=== PATIENT | female | born 1950 | race Caucasian/White ===

== ENCOUNTER 2019-01-14 07:57 | Emergency (ER) | payer MEDICARE ==
--- OUTSIDE RECORDS SUMMARY | 2019-01-14 08:06 | XMS REPORT | Summary of Care ---
:1950 Author Organization [facility] Address [address] [place] [address] Care Team Providers Name Role Phone Kelly Mehta MD Primary Care Provider Charles Narvaez OD Primary Estate Planning Paralegal/Planning And Analysis Manager Reason for Visit Reason Comments Check Up Encounter Details Date Type Department Care Team Description 12/30/2018 Office Visit Nandini Mehta, ELINA on CPAP (Primary Dx); Practice Kelly Miller MD Atrial fibrillation, unspecified type ([facility]); [address] Type 2 diabetes mellitus with stage 3 chronic kidney disease, with long-term current use of insulin ([facility]); [place] [address] [place] [address] Chronic obstructive pulmonary disease, unspecified COPD type ([facility]); [phone] Mixed hyperlipidemia; Hypothyroidism, unspecified type; Diabetes mellitus without complication ([facility]); Benign hypertension; Mixed stress and urge urinary incontinence; Recurrent major depressive disorder, in partial remission ([facility]); Memory disorder; Acute bronchitis, unspecified organism Allergies Active Allergy Reactions Severity Noted Date Comments Environmental Respiratory Reaction 08/15/2018 Fumes, chemicals, seasonal allergies documented as of this encounter (statuses as of 12/30/2018) Medications Medication Sig Dispensed Refills Start End Date Status Date Insulin Detemir Inject 60 Units 5 Device 11 Active (LEVEMIR FLEXTOUCH) beneath the 9 100 UNIT/ML skin DAILY. Subcutaneous Replaces Lantus Solution Pen-injectorIndicat ions: Type 2 diabetes mellitus with stage 3 chronic kidney disease, with long-term current use of insulin ([facility]) Insulin Pen Needle 1 Units by Does 50 Each 6 Active (PEN NEEDLES) 31G X not apply route 9 5 MM Does not apply DAILY. MiscIndications: Diabetes mellitus without complication (HCC) levothyroxine Take 1 Tab by 90 Tab 1 Active (SYNTHROID) 75 MCG mouth BEFORE 9 Oral BREAKFAST. TabIndications: Hypothyroidism, unspecified type losartan (COZAAR) Take 0.5 Tabs 45 Tab 1 Active 25 MG Oral by mouth DAILY. 9 TabIndications: Benign hypertension Glucose Blood (ONE 1 Strip by In 200 Strip 11 Active TOUCH ULTRA TEST Vitro route 9 STRIPS) In Vitro TWICE DAILY. StripIndications: Diabetes mellitus without complication (HCC) oxybutynin Take 1 Tab by 90 Tab 2 Active (DITROPAN XL) 5 MG mouth DAILY. 9 Oral TABLET SR 24 HRIndications: Mixed stress and urge urinary incontinence sertraline (ZOLOFT) Take 1 Tab by 90 Tab 2 Active 100 MG Oral mouth DAILY. 9 TabIndications: Plus 50 mg for Recurrent major total of 150 mg depressive daily disorder, in partial remission (HCC) sertraline (ZOLOFT) Take 1 Tab by 90 Tab 3 Active 50 MG Oral mouth DAILY. In 9 TabIndications: addition to 100 Recurrent major mg tab for depressive total of 150 mg disorder, in daily partial remission (HCC) simvastatin (ZOCOR) Take 1 Tab by 30 Tab 5 Active 40 MG Oral mouth DAILY. 9 TabIndications: Mixed hyperlipidemia glimepiride Take 1 Tab by 180 Tab 1 Active (AMARYL) 4 MG Oral mouth TWICE 9 TabIndications: DAILY. Type 2 diabetes mellitus with stage 3 chronic kidney disease, with long-term current use of insulin ([facility]) donepezil (ARICEPT) Take 1 Tab by 90 Tab 3 Active 10 MG Oral mouth DAILY. 9 TabIndications: Memory disorder albuterol HFA Take 2 Puffs by 1 Inhaler 1 Active (VENTOLIN) 108 (90 inhalation 9 Base) MCG/ACT EVERY FOUR Inhalation Aero HOURS NEEDED SolnIndications: (wheezing). Acute bronchitis, unspecified organism Fluticasone-Umeclid Take 1 INHL by 1 Each 5 Active in-Vilant (TRELEGY inhalation 9 ELLIPTA) DAILY. 100-62.5-25 MCG/INH Inhalation AEROSOL POWDER, BREATH ACTIVATEDIndication s: Chronic obstructive pulmonary disease, unspecified COPD type ([facility]) Insulin Pen Needle 1 Units by Does 50 Each 6 12/31/19 Discontinued (PEN NEEDLES) 31G X not apply route 10 01 (Reorder) 5 MM Does not apply DAILY. MiscIndications: Diabetes mellitus without complication ([facility]) albuterol HFA Take 2 Puffs by 1 Inhaler 1 12/31/19 Discontinued (VENTOLIN) 108 (90 inhalation 8 (Reorder) Base) MCG/ACT EVERY FOUR Inhalation Aero HOURS NEEDED SolnIndications: (wheezing). Acute bronchitis, unspecified organism sertraline (ZOLOFT) Take 1 Tab by 90 Tab 3 12/31/19 Discontinued 50 MG Oral mouth DAILY. In 12 01 (Reorder) TabIndications: addition to 100 Recurrent major mg tab for depressive total of 150 mg disorder, in daily partial remission ([facility]) Fluticasone-Umeclid Take 1 INHL by 1 Each 5 12/31/19 Discontinued in-Vilant (TRELEGY inhalation 01 01 (Reorder) ELLIPTA) DAILY. 100-62.5-25 MCG/INH Inhalation AEROSOL POWDER, BREATH ACTIVATED Insulin Detemir Inject 50 Units 5 Device 11 12/31/19 Discontinued (LEVEMIR FLEXTOUCH) beneath the 01 01 (Reorder) 100 UNIT/ML skin DAILY. Subcutaneous Replaces Lantus Solution Pen-injectorIndicat ions: Type 2 diabetes mellitus with stage 3 chronic kidney disease, with long-term current use of insulin ([facility]) simvastatin (ZOCOR) Take 1 Tab by 30 Tab 5 12/31/19 Discontinued 40 MG Oral Tab mouth DAILY. 9 (Reorder) losartan (COZAAR) TAKE 1/2 TABLET 45 Tab 1 12/31/19 Discontinued 25 MG Oral BY MOUTH ONCE 01 01 (Reorder) TabIndications: DAILY Benign hypertension levothyroxine TAKE 1 TABLET 90 Tab 1 12/31/19 Discontinued (SYNTHROID) 75 MCG BY MOUTH ONCE 01 01 (Reorder) Oral Tab DAILY BEFORE BREAKFAST glimepiride TAKE 1 TABLET 180 Tab 1 12/31/19 Discontinued (AMARYL) 2 MG Oral BY MOUTH TWICE 01 01 (Dose Tab A Adjustment) DAY(DISCONTINUE GLIPIZIDE) donepezil (ARICEPT) TAKE 1 TABLET 90 Tab 3 12/31/19 Discontinued 10 MG Oral BY MOUTH AT 01 01 (Reorder) TabIndications: BEDTIME Memory disorder oxybutynin TAKE 1 TABLET 90 Tab 11 12/31/19 Discontinued (DITROPAN XL) 5 MG BY MOUTH DAILY 01 01 (Reorder) Oral TABLET SR 24 HRIndications: Mixed stress and urge urinary incontinence ONE TOUCH ULTRA TEST THREE 200 Strip 11 12/31/19 Discontinued TEST STRIPS In TIMES A DAY 01 01 (Reorder) Vitro DIRECTED StripIndications: Diabetes mellitus without complication (HCC) glimepiride TAKE 1 TABLET 180 Tab 1 12/31/19 Discontinued (AMARYL) 4 MG Oral BY MOUTH TWICE 01 01 (Reorder) TabIndications: DAILY Type 2 diabetes mellitus with stage 3 chronic kidney disease, with long-term current use of insulin (HCC) sertraline (ZOLOFT) TAKE 1 TABLET 90 Tab 2 12/31/19 Discontinued 100 MG Oral Tab BY MOUTH ONCE 01 01 (Reorder) DAILY ALONG WITH 50 MILLIGRAM TABLET FOR A TOTAL DAILY DOSE OF 150 MILLIGRAMS simvastatin (ZOCOR) TAKE 1 TABLET 90 Tab 1 12/31/19 Discontinued 40 MG Oral Tab BY MOUTH AT 01 01 (Duplicate BEDTIME Order) documented as of this encounter (statuses as of 12/30/2018) Active Problems Problem Noted Date ELINA (obstructive sleep apnea) 08/15/2018 Overview: [facility] [employer] AirSense 10 Autoset-CPAP at 6-15 cm. AHI 24.8 on 08/04/18 Nocturnal Polysomnogram Chronic obstructive pulmonary disease 07/01/2018 Type 2 diabetes mellitus with stage 3 chronic kidney disease, with 08/26/2017 long-term current use of insulin Hypothyroidism 08/16/2016 Depression 08/16/2016 Mixed hyperlipidemia 08/16/2016 BMI 36.0-36.9,adult 11/14/2015 documented as of this encounter (statuses as of 12/30/2018) Resolved Problems Problem Noted Date Resolved Date Diabetes mellitus without complication 11/14/2015 12/30/2018 documented as of this encounter (statuses as of 12/30/2018) Immunizations Name Administration Dates Next Due Influenza Vaccine High Dose 12/30/2018, 01/07/2018, 12/28/2016, 02/16/2016 PNEUMOCOCCAL POLYSACCHARIDE VACCINE 02/13/2015 Pneumococcal Conjugate(13 Valent) 02/16/2016 documented as of this encounter Social History Tobacco Use Types Packs/Day Years Used Date Former Smoker 2 50 Quit: 2013 Smokeless Tobacco: Never Used Alcohol Use Drinks/Week oz/Week Comments Yes occasional Social Isolation Answer Date Recorded In a typical week, how many times do you talk on the Three times a week 07/16 phone with family, friends, or neighbors? How often do you get together with friends or Three times a week 07/16/2018 relatives? How often do you attend druze or gnosticist Never 07/16/2018 services? Do you belong to any clubs or organizations such as No 07/16/2018 druze groups, unions, fraternal or athletic groups, or school groups? How often do you attend meetings of the clubs or Never 07/16/2018 organizations you belong to? Are you now , , , , Patient refused 07/16/2018 never or living with a partner? Physical Activity Answer Date Recorded On average, how many days per week do you engage in moderate to 0 days 2018 strenuous exercise (like walking fast, running, jogging, dancing, swimming, biking, or other activities that cause a light or heavy sweat)? On average, how many minutes do you engage in exercise at this 0 min 2018 level? Stress Answer Date Recorded Do you feel stress - tense, restless, nervous, or anxious, Not at all 2018 or unable to sleep at night because your mind is troubled all the time - these days? Financial Resource Strain Answer Date Recorded How hard is it for you to pay for the very basics like Not very hard 2018 food, housing, medical care, and heating? Intimate Partner Violence Answer Date Recorded Within the last year, have you been afraid of your partner or No 07/16/2018 ex-partner? Within the last year, have you been humiliated or emotionally No 07/16/2018 abused in other ways by your partner or ex-partner? Within the last year, have you been kicked, hit, slapped, or No 07/16/2018 otherwise physically hurt by your partner or ex-partner? Within the last year, have you been raped or forced to have any No 07/16/2018 kind of sexual activity by your partner or ex-partner? Food Insecurity Answer Date Recorded Within the past 12 months, you worried that your food would Never true 2018 run out before you got money to buy more. Within the past 12 months, the food you bought just didn't Never true 2018 last and you didn't have money to get more. Transportation Needs Answer Date Recorded In the past 12 months, has lack of transportation kept you from No 07/16/2018 medical appointments or from getting medications? In the past 12 months, has lack of transportation kept you from No 07/16/2018 meetings, work, or getting things needed for daily living? Sex Assigned at Date Recorded Not on file Job Start Date Occupation Industry Not on file Not on file Not on file Travel History Travel Start Travel End No recent travel history available. documented as of this encounter Last Filed Vital Signs Vital Sign Reading Time Taken Comments Blood Pressure 110/70 12/30/2018 11:58 AM EDT Pulse 78 12/30/2018 11:58 AM EDT Temperature - - Respiratory Rate - - Oxygen Saturation 95% 12/30/2018 11:58 AM EDT Inhaled Oxygen Concentration - - Weight 108.4 kg (239 lb) 12/30/2018 11:58 AM EDT Height 163.8 cm (5' 4.5") 12/30/2018 11:58 AM EDT Body Mass Index 40.39 12/30/2018 11:58 AM EDT documented in this encounter Patient Instructions Patient InstructionsKelly Mehta MD - 12/30/2018 11:40 AM EDTI sent all your refills [facility] for you. Increase your Levemir to 55 units daily and then if glucoses are still over 140 , go up to 60 units daily. We did your influenza shot today. I ordered a Holter monitor because your sleep study mentioned you had atrial fibrillation while sleeping. Use your cpap nightly. Please do fasting laboratory tests in 3 months and then follow up with me documented in this encounter Progress Notes Kelly Mehta MD - 12/30/2018 11:40 AM EDT Nursing Notes: Magalie Duong LPN 12/30/2018 12:04 PM Signed Chief Complaint Patient presents with Check Up SUBJECTIVE: Kayy Garcia is an 68-y.o. female who presents for evaluation and treatment of Type 2 diabetes mellitus. Her control is poor, she has worsened. She only gets 3 lantus pens a month, so skips nights. She is on [employer] now and was told Lantus is not covered. She complains Trujeo is three times the copay of Lantus She agrees to try Levemir again last visit instead. She now says metformin worked for her in the past, but her prior doctor stopped it due to warnings he read about it. She denies side effects to it. She is changing pharmacies, wants all medications sent to [facility] Dr Schuster dx her with COPD, started her on Trelegy ellipta: Working well. He noted atrial fibrillation on her sleep study at night, in July She agrees to a Holter Previous treatment modalities employed include diet, oral agents and insulin injections. Current treatment includes diet, oral agents and insulin injections. Her A1C is improving but Not at goal I referred her to cardiology this past winter for chest pressure. She only made it one minute on the Stress echocardiogram. He felt this was unlikely to be cardiac but ordered the stress echocardiogram. He recommended a higher intensity statin. I discussed this with her and she declined. She had a chronic cough but less.. Her chest CT showed a benign nodule, no masses. We stopped lisinopril and switched to losartan The ARB helped. Gets short of breath easily with exertion. Snores loudly Dr Schuster started a new inhaler and ordered a sleep study. This was done 07/2018 and showed moderate to severe ELINA. Auto cpap was ordered. Atrial fibrillation at night was also noted on the sleep study. Current monitoring regimen: home blood tests - once daily Home blood sugar records: up as far as 230, when watching her diet, 160-190 She stopped going to [facility] for counseling for her depression. She feels overall she isstable. However she hates closed in spaces, and her apartment is very small and closed in. She requested a note to move to [place] [address], newer apartments in her complex, needs a doctor's note last visit. She is still on the waiting list She saw Dr. Balbuena for memory problems and headaches in the past. He started her on Aricept. She feels better, and headaches are better. Last HgbA1c: Lab Results Component Value Date GLYCO 9.4 (H) 12/22/2018 GLYCO 10.2 (H) 09/16/2018 GLYCO 9.4 (H) 06/23/2018 Lab Results Component Value Date TSH 3.11 09/16/2018 Lab Results Component Value Date CHOL 216 (H) 03/25/2018 TRIG 218 (H) 03/25/2018 HDL 48 (L) 03/25/2018 LDL 124 (H) 03/25/2018 LDLHDLRATIO 2.6 03/25/2018 CHOLHDLRATIO 4.5 03/25/2018 Lab Results Component Value Date NA 138 09/16/2018 K 4.9 09/16/2018 CL 103 09/16/2018 CO2 27 09/16/2018 GLUCOSE 250 (H) 09/16/2018 BUN 31 (H) 09/16/2018 CREATININE 0.9 09/16/2018 CALCIUM 8.9 09/16/2018 TP 7.7 09/16/2018 ALBUMIN 4.3 09/16/2018 AST 21 09/16/2018 ALT 23 09/16/2018 ALK 98 09/16/2018 TBILI 0.4 09/16/2018 EGFR >60 09/16/2018 Last eye exam: 09/2018 Dr. Narvaez Last microalbumin: 06/23/18 Last microfilament foot exam: 06/2018 Immunizations: Immunization History Administered Date(s) Administered Influenza Vaccine High Dose 02/16/2016, 12/28/2016, 01/07/2018, 2018 PNEUMOCOCCAL POLYSACCHARIDE VACCINE 02/13/2015 Pneumococcal Conjugate(13 Valent) 02/16/2016 Diabetic complications: CKD Cardiovascular risk factors: lipids and diabetes mellitus CT CHEST LUNG SCREENING Narrative: Procedure(s): CT CHEST LUNG SCREENING Date of service: 10/03/2017 2:26 PM Provided clinical information: 67 years, Female, "Lung cancer annual screening, asymptomatic, smoker hx w/in last 15 yrs (min. 30 pack-yrs)" Procedure and materials: Low-dose CT examination of the chest (LDCT). Contrast: None. Comparison studies: Chest x-ray August 26, 2017 Observations: CT Thorax: Mediastinum and hodan: Normal Vasculature: Normal Lungs: Nodules: 2 mm nodule in the right lower lobe image 285 of series 9. Additional 2 mm nodule in the right lung, image 229 series 9. Evidence of granulomatous disease. Other significant parenchymal findings: None. Pleura: No pleural effusion. Enlarged fatty liver. Postcholecystectomy. Impression: IMPRESSION: Small nodules in the right lung. The fit within the category of benign appearance or behavior. Lung-RADS Assessment Category: 2. - Benign appearance or behavior Recommendation: Continue annual screening with low-dose chest CT in 12 months. Urgency: Routine. This is a routine medical imaging report. Signed by Brandie Perera on 10/06/2017 3:17 PM She opts to hole off on the repeat until after she sees Dr Schuster. Current Outpatient Medications: albuterol HFA (VENTOLIN) 108 (90 Base) MCG/ACT Inhalation Aero Soln, Take 2 Puffs by inhalation EVERY FOUR HOURS NEEDED (wheezing)., Disp: 1 Inhaler, Rfl: 1 donepezil (ARICEPT) 10 MG Oral Tab, Take 1 Tab by mouth DAILY., Disp: 90 Tab, Rfl: 3 Jxnxyjkrgvv-Mdxzffqtf-Yusfvd (TRELEGY ELLIPTA) 100-62.5-25 MCG/INH Inhalation AEROSOL POWDER, BREATH ACTIVATED, Take 1 INHL by inhalation DAILY., Disp: 1 Each, Rfl: 5 glimepiride (AMARYL) 4 MG Oral Tab, Take 1 Tab by mouth TWICE DAILY., Disp: 180 Tab, Rfl: 1 Glucose Blood (ONE TOUCH ULTRA TEST STRIPS) In Vitro Strip, 1 Strip by In Vitro route TWICE DAILY., Disp: 200 Strip, Rfl: 11 Insulin Detemir (LEVEMIR FLEXTOUCH) 100 UNIT/ML Subcutaneous Solution Pen-injector, Inject 60 Units beneath the skin DAILY. Replaces Lantus, Disp: 5 Device, Rfl: 11 Insulin Pen Needle (PEN NEEDLES) 31G X 5 MM Does not apply Misc, 1 Units by Does not apply route DAILY., Disp: 50 Each, Rfl: 6 levothyroxine (SYNTHROID) 75 MCG Oral Tab, Take 1 Tab by mouth BEFORE BREAKFAST., Disp: 90 Tab, Rfl: 1 losartan (COZAAR) 25 MG Oral Tab, Take 0.5 Tabs by mouth DAILY., Disp: 45 Tab, Rfl: 1 oxybutynin (DITROPAN XL) 5 MG Oral TABLET SR 24 HR, Take 1 Tab by mouth DAILY., Disp: 90 Tab, Rfl: 2 sertraline (ZOLOFT) 100 MG Oral Tab, Take 1 Tab by mouth DAILY. Plus 50 mg for total of 150 mg daily, Disp: 90 Tab, Rfl: 2 sertraline (ZOLOFT) 50 MG Oral Tab, Take 1 Tab by mouth DAILY. 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 Headache disorder MIgraines in the past Hx of cardiac cath 2007 negative, [facility] Hypothyroidism Nephrolithiasis TIA (transient ischemic attack) 2013 Type 2 diabetes mellitus with stage 3 chronic kidney disease, with long- term current use of insulin ([facility]) 08/26/2017 Past Surgical History: Procedure Laterality Date APPENDECTOMY SECTION NOS COLONOSCOPY 05/2015 had six polyps, 3 year follow up recommended. EXPLORATORY LAPAROTOMY adhesions MO REMOVAL GALLBLADDER MO TOTAL ABDOM HYSTERECTOMY still has ovaries; no cancer,but it was "pre-cancer" on pap Family History Problem Relation Age of Onset Heart Mother IA s/p CABG Diabetes Mother Cancer Mother renal cancer, bone cancer in back Aneurysm Mother brain Diabetes Father Heart Father IA Kidney Disease Father No Known Problems Daughter Heart Brother IA, Pacemaker Cancer Paternal Grandmother breast cancer Social History Tobacco Use Smoking status: Former Smoker Packs/day: 2.00 Years: 50.00 Pack years: 100.00 Last attempt to quit: 2014 Years since quittin.7 Smokeless tobacco: Never Used Substance Use Topics Alcohol use: Yes Comment: occasional Review Of Systems Skin: negative for rash Eyes: negative for vision changes Ears/Nose/Throat:has intermittent sinus congestion. Respiratory: positive for inermittent dry cough, shortness of breath , denies hemopytisis Cardiovascular: negative for chest pain pressure, no orthopnea Gastrointestinal: negative for abdominal pain, diarrhea, bowel changes. Neurologic: negative for dizziness, syncope; has memory issues, but aricept helps Psychiatric: controlled depression OBJECTIVE: BP 110/70 (BP Location: Right arm, Patient Position: Sitting) | Pulse 78 | Ht 5' 4.5" (1.638 m) |Wt 239 lb (108.4 kg) | SpO2 95% | ? No | BMI 40.39 kg/m General appearance: alert, no distress, oriented times 3 Skin: Skin color, texture, turgor normal. No rashes or lesions. Eyes: conjunctivae/corneas clear. Ears: negative findings: external ears normal to inspection and palpation Oropharynx: negative findings: lips normal without lesions Nose: No drainage Neck: Neck supple. No cervical or supraclavicular adenopathy. Thyroid symmetric , normal size. Carotids 4/4 without bruits. Lungs:. Clear with good aeration bilaterally, Chest symmetrical, no crackle or rales. Heart: Regular rate and rhythm. No murmurs, clicks or gallops. Abdomen: Abdomen soft, non-tender. BS normal. No masses, organomegaly or hernia. No bruits. Extremities: Extremities without deformities, edema, or skin discoloration. Station and gait normal. Peripheral pulses: dorsalis pedis=2/2, Neuro: Gait normal, strength grossly normal and symmetric. ASSESSMENT/PLAN: ICD-9-CM ICD-10-CM 1. ELINA on CPAP 327.23 G47.33 HOLTER MONITOR 24-48 HOURS V46.8 Z99.89 2. Atrial fibrillation, unspecified type ([facility]) 427.31 I48.91 HOLTER MONITOR 24- 48 HOURS 3. Type 2 diabetes mellitus with stage 3 chronic kidney disease, with long-term current use of insulin ([facility]) 250.40 E11.22 Insulin Detemir (LEVEMIR FLEXTOUCH) 100 UNIT/ML Subcutaneous Solution Pen-injector 585.3 N18.3 glimepiride (AMARYL) 4 MG Oral Tab V58.67 Z79.4 GLYCOHEMOGLOBIN A1C COMPREHENSIVE METABOLIC PANEL 4. Chronic obstructive pulmonary disease, unspecified COPD type ([facility]) 496 J44.9 Czcacxeqcoq-Cmyiarjjo-Vvtryg (TRELEGY ELLIPTA) 100-62.5-25 MCG/INH Inhalation AEROSOL POWDER, BREATH ACTIVATED 5. Mixed hyperlipidemia 272.2 E78.2 simvastatin (ZOCOR) 40 MG Oral Tab LIPID PROFILE 6. Hypothyroidism, unspecified type 244.9 E03.9 levothyroxine (SYNTHROID) 75 MCG Oral Tab THYROID STIMULATING HORMONE 7. Diabetes mellitus without complication ([facility]) 250.00 E11.9 Insulin Pen Needle (PEN NEEDLES) 31G X 5 MM Does not apply Misc Glucose Blood (ONE TOUCH ULTRA TEST STRIPS) In Vitro Strip 8. Benign hypertension 401.1 I10 losartan (COZAAR) 25 MG Oral Tab 9. Mixed stress and urge urinary incontinence 788.33 N39.46 oxybutynin ( DITROPAN XL) 5 MG Oral TABLET SR 24 HR 10. Recurrent major depressive disorder, in partial remission ([facility]) 296.35 F33.41 sertraline (ZOLOFT) 100 MG Oral Tab sertraline (ZOLOFT) 50 MG Oral Tab 11. Memory disorder 780.93 R41.3 donepezil (ARICEPT) 10 MG Oral Tab 12. Acute bronchitis, unspecified organism 466.0 J20.9 albuterol HFA (VENTOLIN) 108 (90 Base) MCG/ACT Inhalation Aero Soln Mixed hyperlipidemia I recommend a higher intensity statin. A relative was intolerant of Crestor so she declined last visit Type 2 diabetes mellitus with stage 3 chronic kidney disease, with long-term current use of insulin ([facility]) Diabetes is Not controlled, will increase levemir to 55-60 units daily, am is ok if this is easier to remember. continue glimepiride to 4 mg bid.. Work on diet and exercise. Hypothyroidism, unspecified type Continue current meds Recurrent major depressive disorder, in partial remission (HCC) Continue sertraline COPD Follow up with Dr Schuster as directed. She declines annual chest CT screen for now, will discuss with dr Schuster next visit. Influenza shot given today Rx: CONCHA? ARB Statin? Yes Metformin? No: GFR went down when on this per past history but today says there were no side effects. Patient Instructions I sent all your refills to [facility] for you. Increase your Levemir to 55 units daily and then if glucoses are still over 140 , go up to 60 units daily. We did your influenza shot today. I ordered a Holter monitor because your sleep study mentioned you had atrial fibrillation while sleeping. Use your cpap nightly. Please do fasting laboratory tests in 3 months and then follow up with me Author: Kelly Mehta MD 12/30/2018 12:24 documented in this encounter Plan of Treatment Date Type Specialty Care Team Description [facility] Kelly Mehta MD [address] [place] [address] 05/21/2019 Office Visit Pulmonary Eran Schuster MD [address] [place] [address] [phone] Name Type Priority Associated Diagnoses Order Schedule HOLTER MONITOR 24-48 HOURS EKG Routine ELINA on CPAP Expected: Atrial fibrillation, 12/30/2018, unspecified type (HCC) Expires: 02/03/2020 GLYCOHEMOGLOBIN A1C Lab Routine Type 2 diabetes mellitus Expected: with stage 3 chronic 03/31/2019 kidney disease, with (Approximate), long-term current use of Expires: 06/01/2019 insulin (HCC) COMPREHENSIVE METABOLIC Lab Routine Type 2 diabetes mellitus Expected: PANEL with stage 3 chronic 03/31/2019 kidney disease, with (Approximate), long-term current use of Expires: 06/01/2019 insulin ([facility]) LIPID PROFILE Lab Routine Mixed hyperlipidemia Expected: 03/31/2019 (Approximate), Expires: 06/01/2019 THYROID STIMULATING HORMONE Lab Routine Hypothyroidism, Expected: unspecified type 03/31/2019 (Approximate), Expires: 06/01/2019 Health Maintenance Due Date Last Done Comments MAMMOGRAM (SCREENING) 1989 ZOSTER IMMUNIZATION SERIES 1999 (1 of 2) OSTEOPOROSIS SCREENING 2014 LUNG CANCER SCREENING 10/03/2018 10/03/2017 INFLUENZA VACCINE (#1) 2018 01/07/2018, 12/28/2016, 02/16/2016 HEMOGLOBIN A1C 03/23/2019 12/22/2018, 09/16/2018, 06/23/2018, Additional history exists FOOT EXAM 07/02/2019 07/01/2018, 07/01/2018, 07/01/2018, Additional history exists DEPRESSION SCREENING 07/17/2019 07/16/2018 FALL RISK ASSESSMENT 07/17/2019 07/16/2018, 07/16/2018 MEDICARE ANNUAL WELLNESS 07/17/2019 07/16/2018 VISIT LIPID DISORDER SCREENING 12/31/2019 12/30/2018, 03/25/2018, 02/25/2017, Additional history exists Diabetic Eye Exam 09/16/2020 09/16/2018, 08/22/2017, 08/22/2017, Additional history exists COLONOSCOPY SCREENING 04/15/2024 04/15/2014 PNEUMOCOCCAL 65+YRS Completed 02/16/2016, 02/13/2015 HPV IMMUNIZATION SERIES Aged Out No longer eligible based on patient's age to complete this topic MENINGOCOCCAL VACCINE IMM Aged Out No longer eligible based on patient's age to complete this topic documented as of this encounter Goals Goal Patient Goal Associated Recent Patient-Stated? Author Type Problems Progress Blood Pressure Blood 110/70 No Janine, < 140/90 Pressure (12/30/2018 Kelly Miller, 11:58 AM EDT) Note: This is an individualized treatment (blood pressure) goal for Kayy Garcia: Displayed above (on the left) is your goal for blood pressure control. Your most recent blood pressure is also shown above, on the right. You should try to achieve blood pressures that are lower than your goal listed above (on the left). Depression screen (PHQ-9) total score < Depression No Kelly Mehta MD 5 Note: This is an individualized treatment (depression) goal for Kayy Garcia: Displayed above is your goal for a depression screening (PHQ-9) score that would indicate good control of your depression. Glycohemoglobin A1c < 7.0 Diabetes 9.4 (12/22/2018 9:38 No Kelly Mehta AM, MD Note: This is an individualized treatment (diabetes control, HgbA1C) goal for Kayy Garcia: Displayed above is your progress towards your HgbA1C goal. Your goal is shown above (on the left); your most recent HgbA1C is shown on the right. Note that lower numbers are better. Weight loss vs. 18 Lifestyle 0 (12/30/2018 11:58 AM No Kelly Mehta mo max (lbs) >= 10 SIMONE DAVIS Note: This is an individualized lifestyle goal for Kayy Garcia: Your body mass index (BMI) is more than 30. You should lose weight. A reasonable starting goal is to lose 10 pounds. Displayed above is how many pounds you have lost thus far towards your 10 pound weight loss goal. Keep a regular sleep schedule Lifestyle No Kelly Mehta MD Note: This is an individualized lifestyle goal for Kayy Garcia: Please maintain a regular sleep schedule. This may help with some symptoms of depression. Keep immunizations current Lifestyle No Kelly Mehta MD Note: This is an individualized lifestyle goal for Kayy Garcia: Please be sure to keep up-to-date on recommended immunizations. For example, this would include a yearly influenza vaccine. Immunization status can be seen by looking at the Health Maintenance sections of your e[facility], Plan of Care, and any After Visit Summaries. Take all prescribed medications as Self-management Kelly Ko MD directed Note: This is an individualized self-management goal for Kayy Garcia: Please take all prescribed medications as directed. 1. Do not skip doses. If you cannot afford your medications, talk with your doctor. 2. Use a pill reminder system such as a pill box if needed. Your pharmacist can help you with this. 3. Contact your Pharmacy 5 days before your medication runs out. If you cannot take your medications for any reasons, talk with your doctor. 4. Please bring all of your medication bottles and inhalers (or a list of all your medications/inhalers) with you to every visit. Potential barriers to meeting all of your care plan goals will continue to be addressed on an ongoing basis. documented as of this encounter Results Not on filedocumented in this encounter Visit Diagnoses Diagnosis ELINA on CPAP - Primary Obstructive sleep apnea (adult) (pediatric) Atrial fibrillation, unspecified type (HCC) Type 2 diabetes mellitus with stage 3 chronic kidney disease, with long-term current use of insulin (HCC) Chronic obstructive pulmonary disease, unspecified COPD type (HCC) Mixed hyperlipidemia Hypothyroidism, unspecified type Diabetes mellitus without complication (HCC) Type II or unspecified type diabetes mellitus without mention of complication, not stated as uncontrolled Benign hypertension Essential hypertension, benign Mixed stress and urge urinary incontinence Mixed incontinence urge and stress (male)(female) Recurrent major depressive disorder, in partial remission (HCC) Memory disorder Memory loss Acute bronchitis, unspecified organism documented in this encounter Insurance Payer Benefit Plan / Subscriber ID Effective Dates Phone Address Type Group AETNA MEDICARE AETNA MEDICARE xxxxxxxx 2018-Present [employer] ADVANTAGE ADVANTAGE (Home) [facility] [phone] [address] (Work) [place] [address] documented as of this encounter
[2019-01-14 08:19] VITALS: BP 146/70
--- NOTE | 2019-01-14 08:56 | UC ---
General HPI - HPI Summary HPI Summary: Patient presents to urgent care for evaluation of a fall that happened on Saturday and a store. Patient started on a hanging chair. Patient she follows her in the chair fell landing on top of her. Patient did not strike her head. No loss of consciousness. No blood out of her eyes ears nose or mouth. Patient states she landed on her buttocks. Patient has had some sacral pain. Patient has progressive upper neck and mid back pain. Patient also was some mild right wrist pain. Patient took Tylenol yesterday. Patient had taken any analgesics A. Patient has taken hot showers and holds. Patient without chest pain terms of breath or abdominal pain. Patient got extremely weakness or paresthesias. Patient's medications reviewed this visit. Patient has had a history of arthritis. - History of Current Complaint Chief Complaint: UCGeneralIllness Stated Complaint: SHOULDER/BACK SIDE INJURY Time Seen by Provider: 01/14/19 08:52 Hx Obtained From: Patient, Other: - Friends are present with patient Onset Severity: Moderate Current Severity: Moderate Pain Intensity: 7 - Allergy/Home Medications Allergies/Adverse Reactions: Allergies Allergy/AdvReac Type Severity Reaction Status Date / Time No Known Allergies Allergy Verified 08/21/13 19:16 Home Medications: Home Medications Donepezil TAB* [Aricept 5 MG TAB*] 5 mg PO DAILY 01/14/19 [History Confirmed 06/03] Insulin Detemir (NF) [Levemir (NF)] 60 units DAILY 01/14/19 [History Confirmed 01/14/19] Losartan TAB* [Cozaar TAB*] 12.5 mg PO DAILY 01/14/19 [History Confirmed ] Oxybutynin TAB* [Ditropan TAB*] 5 mg PO DAILY 01/14/19 [History Confirmed ] Sertraline* [Zoloft*] 150 mg PO DAILY 01/14/19 [History Confirmed 01/14/19] PMH/Surg Hx/FS Hx/Imm Hx Previously Healthy: Yes - arthritis - Surgical History Surgical History: Yes Surgery Procedure, Year, and Place: hysto, appy, exp. lap. krystal. - Family History Known Family History: Positive: Non-Contributory - Social History Occupation: Retired Lives: Alone Alcohol Use: None Substance Use Type: None Smoking Status (MU): Former Smoker Household Exposure Type: Cigarettes - Immunization History Most Recent Influenza Vaccination: Fall 2012 Most Recent Tetanus Shot: unsure Most Recent Pneumonia Vaccination: never Review of Systems All Other Systems Reviewed And Are Negative: Yes Constitutional: Positive: Negative Skin: Positive: Negative. Negative: Bruising, Other - no open wounds or abrasions ENT: Positive: Negative Musculoskeletal: Positive: Other: - Back pain neck pain and right wrist pain Neurological: Positive: Negative Psychological: Positive: Negative Is Patient Immunocompromised?: No Physical Exam - Summary Physical Exam Summary: Vital Signs Reviewed: Yes A+Ox3, no distress Eyes: Conjunctiva Clear, DARIN. EOM intact and full ENT: Hearing grossly normal TM x 2 clear, no hemotymp b/l, no septal hematoma b /l no blood oropharynx, no broken teeth, mmoist, uvula midline, no exudate, no erythema Neck: Positive: Supple Respiratory: Positive: No respiratory distress, No accessory muscle use + CTA throughout no w/r Cardiovascular: RRR nl s1, s2 no m/r CBT <2 sec abd soft + BS nt/nd no guarding, no distension Musculoskeletal Exam: Pt with full AROM c spine. mild tenderness right paraspinal muscles. No crepitus Full AROM ext x 4 against resistance with mild increased pain in back. Neurological: Positive: Alert, + sensation throughout Psychological: Positive: Normal Response To examiner Skin: Positive: no rash, no ecchymosis Triage Information Reviewed: Yes Vital Signs: Initial Vital Signs Temp 97.7 F 01/14/19 08:12 Pulse 72 01/14/19 08:12 Resp 18 01/14/19 08:12 BP 146/70 01/14/19 08:12 Pulse Ox 93 01/14/19 08:12 Diagnostics - Radiology No standard instances Radiology Interpretation Completed By: Radiologist - Patient Name: HE PILLAI Medical Record#: [id number] Ordering Physician: Bridget Vazquez MD Acct.#: [id number] : 1950 Age: 68 Sex: F Location: [facility] Exam Date: 01/14/19 0905 ADM Status: REG ER Order Information: SP CERVICAL 2-3 VWS Accession Number: [id number] CPT: 95338 HISTORY: fall COMPARISONS: T spine dated January 14, 2019 VIEWS: 4, Frontal, lateral, and open-mouth odontoid views of the cervical spine. A swimmer's view is included on the T-spine series. FINDINGS: The cervical spine is visualized from the skull base through C6. The C7-T1 alignment is not included within the [id number] the current examination.. The C7-T1 alignment isn't included within the psbkl-ry-elun of the thoracic spine series. ALIGNMENT: There is straightening with reversal of the normal cervical lordosis. VERTEBRAL BODIES: There is diffuse osteopenia. There is anterolateral marginal osteophyte formation at C5-C6. JOINTS: There is uncovertebral and facet osteoarthritis. INTERVERTEBRAL DISCS: There is diffuse loss of intervertebral disc height. SOFT TISSUE: The prevertebral soft tissues are normal. OTHER: The skull base is normal. The lung apices are clear. IMPRESSION: 1. DEGENERATIVE DISC DISEASE AND OSTEOARTHRITIS 2. OSTEOPENIA. 3. NO ACUTE OSSEOUS INJURY TO THE CERVICAL SPINE. <Electronically signed by Ghulam White MD in OV> 01/14/19949 Dictated By: Ghulam White MD Dictated Date/Time : 01/14/19945 Transcribed Date/Time: 01/14/19945 Copy to: CC:Kelly Mehta MD; Bridget Vazquez MD Imaging - [facility] Imaging - [place] [facility] [address] [place] [address] This report is only to be considered final once signed by the Provider(s) as displayed in the "<Electronically Signed by >" field (s). Absence of a signature indicates the report is in a draft status and still needs to be finalized. In the event this document was created by someone other than the signing Provider, the individual initiating the document will be listed in the "Entered by:" or "Dictated by:" kidd. 1 of 2 Patient Name: HE PILLAI Tal Medical Record#: [id number] Ordering Physician: Bridget Vazquez MD Acct.#: [id number] : 1950 Age: 68 Sex: F Location: [facility]RGENT [facility] Exam Date: 01/14/19904 ADM Status: REG ER Order Information : SACRUM/COCCYX 2+ VWS Accession Number: [id number] CPT: 84891 HISTORY : fall, pain . COMPARISONS: None relevant available at the time of dictation. VIEWS: 4, frontal and lateral views of the sacrum and coccyx. FINDINGS: BONE DENSITY: There is diffuse osteopenia. BONES: There is no displaced fracture. JOINTS: There is advanced facet osteoarthritis along the lower lumbar spine. There is osteoarthritis of the hips and SI joints. ALIGNMENT: There is no dislocation. SOFT TISSUES: There is atherosclerosis of the aorta. OTHER FINDINGS: None. IMPRESSION: 1. OSTEOPENIA. 2. OSTEOARTHRITIS. 3. NO ACUTE OSSEOUS INJURY OF THE SACRUM AND COCCYX. PLAIN RADIOGRAPHS ARE RELATIVELY INSENSITIVE TO NONDISPLACED FRACTURES OF THE SACRUM AND COCCYX. IF THERE IS PERSISTENT CLINICAL CONCERN FOR SACROCOCCYGEAL OSSEOUS PATHOLOGY, BONE SCANNING MAY BE MORE SENSITIVE ____ <Electronically signed by Ghulam White MD in OV> 01/14/19947 Dictated By: Ghulam White MD Dictated Date/Time: 01/14/19946 Transcribed Date/Time: 01/14/19946 Copy to: CC:Kelly Mehta MD; Bridget Vazquez MD Imaging - [facility] Imaging - [place] [facility] - [facility] [address] [place] [address] ph [phone]) ph ([phone]) ph ([phone]) This report is only to be considered final once signed by the Provider(s) as displayed in the "<Electronically Signed by >" field (s). Absence of a signature indicates the report is in a draft status and still needs to be finalized. In the event this document was created by someone other than the signing Provider, the individual initiating the document will be listed in the "Entered by:" or "Dictated by:" kidd. 1 of 2 Patient Name: HE PILLAI Medical Record#: [id number] Ordering Physician: Bridget Vazquez MD Acct.#: [id number] : 1950 Age: 68 Sex: F Location: [facility] Exam Date: 01/14/19904 ADM Status: REG ER Order Information: THORACIC SPINE 2 VWS Accession Number: [id number] CPT: 69216 HISTORY: fall, pain COMPARISONS: None relevant available at the time of dictation. VIEWS: 2, Frontal and lateral views of the thoracic spine. FINDINGS: ALIGNMENT: There is mild scoliotic curvature of the spine. VERTEBRAL BODIES: There is diffuse osteopenia. There is multilevel anterolateral marginal osteophyte formation. JOINTS: Unremarkable. INTERVERTEBRAL DISCS: There is diffuse loss of intervertebral disc height. SOFT TISSUE: Unremarkable OTHER: The visualized lungs are clear. IMPRESSION: OSTEOPENIA. DEGENERATIVE DISC DISEASE. MILD SCOLIOSIS. < Electronically signed by Ghulam White MD in OV> 01/14/19947 Dictated By: Ghulam White MD Dictated Date/Time: 01/14/19947 Transcribed Date/ Time: 01/14/19947 Copy to: CC:Kelly Mehta MD; Bridget Vazquez MD Imaging - [facility] Imaging - [facility] [address] [place] [address] ph ([phone]) ph ([phone]) ph ) This report is only to be considered final once signed by the Provider(s) as displayed in the "<Electronically Signed by >" field (s). Absence of a signature indicates the report is in a draft status and still needs to be finalized. In the event this document was created by someone other than the signing Provider, the individual initiating the document will be listed in the "Entered by:" or "Dictated by:" kidd. 1 of 1 Patient Name: HE PILLAI Medical Record#: [id number] Ordering Physician: Bridget Vazquez MD Acct.#: [id number] : 1950 Age: 68 Sex: F Location: [facility] Exam Date: 01/14/19904 ADM Status: REG ER Order Information: WRIST RIGHT 3+ VWS Accession Number: [id number] CPT: 60368 HISTORY: fall, pain . COMPARISONS: None relevant available at the time of dictation. VIEWS: 3, Frontal, lateral, and oblique views of the right wrist FINDINGS: BONE DENSITY: There is diffuse osteopenia. BONES: There is no displaced fracture. JOINTS: There is osteoarthritis of the first CMC joint. ALIGNMENT: There is no dislocation. SOFT TISSUES: Unremarkable. OTHER FINDINGS: None. IMPRESSION: 1. OSTEOPENIA 2. OSTEOARTHRITIS NO ACUTE OSSEOUS INJURY. IF SYMPTOMS PERSIST, RECOMMEND REPEAT IMAGING < Electronically signed by Ghulam White MD in OV> 01/14/19948 Dictated By: Ghulam White MD Dictated Date/Time: 01/14/19947 Transcribed Date/ Time: 01/14/19947 Copy to: CC:Kelly Mehta MD; Bridget Vazquez MD Imaging - [facility] Imaging - [place] [facility] Imaging - [facility] [address] [place] [address] ph ([phone]) ph ([phone]) ph ) This report is only to be considered final once signed by the Provider(s) as displayed in the "<Electronically Signed by >" field (s). Absence of a signature indicates the report is in a draft status and still needs to be finalized. In the event this document was created by someone other than the signing Provider, the individual initiating the document will be listed in the "Entered by:" or "Dictated by:" kidd. 1 of 1 Re-Evaluation - Re-Evaluation First Eval Comment: Reviewed images with patient. Recommended Motrin and Tylenol. Recommended heat and stretching. Recommended follow-up with PCP. Patient's is understanding and agreement with him. Return precautions discussed. Course/Dx - Course Course Of Treatment: Patient presents to urgent care for evaluation of injury she sustained when she had a fall on Saturday. Patient states she fell out of a chair at a store landing on her coccyx. Patient with pain in her coccyx her neck and her right wrist. Patient has not taken anything for analgesia tape. Patient did take one dose of analgesia yesterday. No paresthesias or weakness. On exam vital signs shows an elevated blood pressure. Patient with history of similar. Patient with tenderness paraspinal cervical thoracic area. Patient also some mild Desai spinal sacral prescription coccyx area. Patient with good range of motion. Distal CSM is intact. We'll check cement imaging will be given analgesics and reassess. Discussed with patient anticipation of increased pain for the first 36 hours following injury. Patient comfortable and agreement with plan we'll reassess following him at - Diagnoses Provider Diagnosis: Musculoskeletal pain, Cervical strain Discharge ED - Sign-Out/Discharge Documenting (check all that apply): Patient Departure All imaging exams completed and their final reports reviewed: Yes - Discharge Plan Condition: Stable Disposition: HOME Patient Education Materials: Cervical Strain (ED), Musculoskeletal Pain (ED) Referrals: Kelly Mehta MD [Primary Care Provider] - Additional Instructions: Okay to alternate ibuprofen (Advil, Motrin) and Tylenol (acetaminophen) every 3 hours for pain or fever. Take with food. Do NOT take for more than 4-5 days. - apply heat to the areas that are sore- once your muscles are warm, slow gentle stretching exercises - Stay well hydated - drink plenty of non-alcoholic non-caffinated beverages - contact your doctor to schedule a followup appointment early next week - If you have uncontrolled pain, develop weakness, vomiting, or any other concerns is it recommended you go to the emergency department for further evaluation and treatment - Billing Disposition and Condition Condition: STABLE Disposition: Home
[2019-01-14] MEDS ORDERED: Ibuprofen TAB* 600 MG PO ONE (09:06)
== END 2019-01-14 10:16 | disposition home or self-care (01) ==
LOC: UCEAST 07:57
DX: S16.1XXA Strain of muscle, fascia and tendon at neck level, initial encounter (principal); M53.3 Sacrococcygeal disorders, not elsewhere classified; M50.323 Other cervical disc degeneration at C6-C7 level; M47.892 Other spondylosis, cervical region; M85.89 Other specified disorders of bone density and structure, multiple sites; M47.898 Other spondylosis, sacral and sacrococcygeal region; M51.34 Other intervertebral disc degeneration, thoracic region; M41.84 Other forms of scoliosis, thoracic region; M19.031 Primary osteoarthritis, right wrist; W07.XXXA Fall from chair, initial encounter; Y92.512 Supermarket, store or market as the place of occurrence of the external cause; Z87.891 Personal history of nicotine dependence
CPT/HCPCS: 72040; 72070; 72220; 99211; A9270-GY; G0463

== ENCOUNTER 2022-08-27 05:15 | Inpatient (IN) ==
[2022-08-27] MEDS ORDERED: Heparin - STEMI 5,000 UNITS/ML 1 ml VIAL IV ONE ×2 (05:36→05:38)
[2022-08-27 05:42] LABS: ABS Basophils 0.1 10^3/uL (0.0-0.1); ABS Eosinophils 0.2 10^3/uL (0.0-0.5); ABS Lymphocytes 3.9 10^3/uL (1.0-4.8); ABS Monocytes 0.8 10^3/uL (0.0-0.9); ABS Neutrophils 8.6 10^3/uL (1.5-7.6); ABS Nucleated RBC 0.01 10^3/ul; Eosinophil % 1.4 %; Hematocrit 42.4 % (35-45); Hemoglobin 13.8 g/dL (11.5-14.3); Lymphocyte % 28.8 %; Mean Corpuscular Hemoglobin 28.3 pg (27-33); Mean Corpuscular Hgb Conc 32.5 g/dL (31-36); Mean Corpuscular Volume 86.9 fL (80-97); Mean Platelet Volume 7.3 fL (7.5-11.2); Nucleated Red Blood Cells % 0.1 /100 WBC (0.0-0.4); Platelet Count 301 10^3/uL (150-450); Red Blood Count 4.88 10^6/uL (3.63-4.92); Red Cell Distribution Width 14.6 % (12-17); White Blood Count 13.6 10^3/uL (3.8-11.8)
[2022-08-27 05:53] LABS: INR 0.94 (0.88-1.18)
[2022-08-27] MEDS ORDERED: Lactated Ringers 1000 ml BAG IV.FLUID IV ONE (05:53)
[2022-08-27] MEDS ORDERED: Iohexol 350 (CONTRAST) 200 ML MDV IV ONE ×2 (05:58→06:48)
[2022-08-27] MEDS ORDERED: fentaNYL 100 mcg/2 ml 50 MCG/ML VIAL ONE ×2 (05:58→06:55)
[2022-08-27] MEDS ORDERED: nitroGLYCERIN DRIP 25,000 MCG/250 ML BTL ONE (05:58)
[2022-08-27] MEDS ORDERED: Midazolam 5 mg/5 ml VIAL 1 mg/ml 5 ml VIAL (5 mg) ONE (05:58)
[2022-08-27] MEDS ORDERED: Heparin 1,000 UNIT/ML 10 ml (10,000 UNITS) CATHLAB/DIALYSIS ONE (05:58)
[2022-08-27] MEDS ORDERED: VERAPAMIL 2.5 MG/ML 2 ML VIAL ** 5 mg/2 ml ONE (05:58)
[2022-08-27] MEDS ORDERED: Heparin 2 UNITS/ML 1000 mls 2,000 ML IV ONE (05:58)
[2022-08-27] MEDS ORDERED: Lidocaine 1% MPF 5 ML VIAL ONE (05:58)
[2022-08-27] MEDS ORDERED: niCARdipine 0.1MG/ML IVPREMIX 20 MG/200 ML BAG IV ONE (06:02)
[2022-08-27 06:35] LABS: Potassium 4.2 mmol/L (3.5-5.0)
[2022-08-27 06:36] LABS: Albumin 3.9 g/dL (3.2-5.2); Albumin/Globulin Ratio 1.4 (1-3); Calcium 9.1 mg/dL (8.6-10.3); Creatinine, Serum 0.92 mg/dL (0.51-0.95); Globulin 2.8 g/dL (2-4); Total Bilirubin 0.4 mg/dL (0.2-1.0); Total Protein 6.7 g/dL (6.4-8.9); eGFR CKD-EPI 65.7 (>60)
[2022-08-27] MEDS ORDERED: Iohexol 350 (CONTRAST) 100 ML PAK IV ONE (06:49)
[2022-08-27] MEDS ORDERED: Ondansetron 4 mg VIAL 2 MG/ML 2 ml VIAL IV PRN (07:10)
[2022-08-27] MEDS ORDERED: Dextrose 50% Syringe 50 ml 25 GM/50 ML SYRINGE IV PUSH PRN (08:46)
[2022-08-27] MEDS ORDERED: Insulin GLARGINE 100 un/ml 10 ml VIAL SUBCUT ONE (10:27)
[2022-08-27 12:42] LABS: HDL Cholesterol 49.4 mg/dL
[2022-08-27] MEDS ORDERED: Enoxaparin 40 MG/0.4 ML SYR SUBCUT SCH (18:00)
[2022-08-27] MEDS ORDERED: Enoxaparin 30 MG/0.3 ML SYR SUBCUT SCH (18:00)
[2022-08-28 06:15] LABS: ABS Basophils 0.1 10^3/uL (0.0-0.1); ABS Eosinophils 0.2 10^3/uL (0.0-0.5); ABS Monocytes 0.7 10^3/uL (0.0-0.9); ABS Neutrophils 7.9 10^3/uL (1.5-7.6); ABS Nucleated RBC 0.02 10^3/ul; Eosinophil % 1.3 %; Hemoglobin 14.5 g/dL (11.5-14.3); Lymphocyte % 25.2 %; Mean Corpuscular Hemoglobin 28.5 pg (27-33); Mean Corpuscular Volume 86.3 fL (80-97); Mean Platelet Volume 7.1 fL (7.5-11.2); Nucleated Red Blood Cells % 0.1 /100 WBC (0.0-0.4); Platelet Count 309 10^3/uL (150-450); Red Cell Distribution Width 14.8 % (12-17); White Blood Count 11.8 10^3/uL (3.8-11.8)
[2022-08-28 06:41] LABS: ALT 23 U/L (7-52); Albumin 4.2 g/dL (3.2-5.2); Albumin/Globulin Ratio 1.4 (1-3); Alkaline Phosphatase 85 U/L (35-149); Blood Urea Nitrogen 17 mg/dL (6-24); CO2 Carbon Dioxide 22 mmol/L (22-32); Calcium 9.4 mg/dL (8.6-10.3); Chloride 105 mmol/L (101-111); Creatinine, Serum 0.78 mg/dL (0.51-0.95); Glucose 219 mg/dL (70-100); Magnesium 1.9 mg/dL (1.9-2.7); Sodium 136 mmol/L (135-145); Total Protein 7.2 g/dL (6.4-8.9); eGFR CKD-EPI 80.1 (>60)
[2022-08-28 06:47] LABS: Anion Gap 9 mmol/L (2-16)
[2022-08-28 07:10] LABS: Potassium, Whole Blood 4.1 mmol/L (3.4-4.5)
[2022-08-28] MEDS ORDERED: Insulin GLARGINE 100 un/ml 10 ml VIAL SUBCUT SCH (09:00)
[2022-08-28] MEDS: PTO:DAPAGLIFLOZIN 10 MG TAB (NF) PO SCH (09:03)
[2022-08-28] MEDS ORDERED: Metoprolol Tartrate 5 mg VIAL 5 ml VIAL (1 mg/ml) ONE (09:39)
[2022-08-28] MEDS ORDERED: Metoclopramide 5 MG/ML VIAL (10 mg) IV ONE (09:39)
[2022-08-28] MEDS ORDERED: Amiodarone 150 mg IVPREMIX 150 MG/100 ML BAG IV ONE ×2 (09:41)
[2022-08-28] MEDS ORDERED: Magnesium Sulfate 2 gm BAG 2 GM/50 ML BAG IVPB ONE (09:54)
[2022-08-28] MEDS ORDERED: Amiodarone 360 MG IVPREMIX 360 MG/200 ML BAG IV ONE (09:55)
[2022-08-28] MEDS: Amiodarone 360 MG IVPREMIX 360 MG/200 ML BAG IV SCH ×3 (09:56→16:18)
[2022-08-28] MEDS ORDERED: Metoprolol Tartrate 5 mg VIAL 5 ml VIAL (1 mg/ml) IV ONE (10:21)
[2022-08-28] MEDS ORDERED: Heparin 5000 UNITS/ML 1 mL VIAL IV SCH (11:00)
[2022-08-28] MEDS: Heparin DRIP 25,000 UNITS BAG 25,000 UNITS/500 ML BAG IV SCH (11:04)
[2022-08-28] MEDS ORDERED: Sulfur Hexaflouride MICROSPHR 25 MG VIAL ONE (12:25)
[2022-08-29 02:05] LABS: TSH Ultra Thyroid Stim Horm 2.99 mcIU/mL (0.34-5.60)
[2022-08-29 02:06] LABS: Free T3 2.1 pg/mL (2.5-3.9)
[2022-08-29 02:07] LABS: Free T4 0.78 ng/dL (0.61-1.12)
[2022-08-29] MEDS: Amiodarone 360 MG IVPREMIX 360 MG/200 ML BAG IV SCH (04:08)
[2022-08-29 06:10] LABS: ABS Eosinophils 0.2 10^3/uL (0.0-0.5); ABS Lymphocytes 3.1 10^3/uL (1.0-4.8); ABS Monocytes 0.7 10^3/uL (0.0-0.9); ABS Neutrophils 6.3 10^3/uL (1.5-7.6); ABS Nucleated RBC 0.01 10^3/ul; Hematocrit 43.1 % (35-45); Hemoglobin 14.3 g/dL (11.5-14.3); Lymphocyte % 29.9 %; Mean Corpuscular Hemoglobin 28.2 pg (27-33); Mean Corpuscular Volume 85.4 fL (80-97); Nucleated Red Blood Cells % 0.1 /100 WBC (0.0-0.4); Platelet Count 257 10^3/uL (150-450); Red Blood Count 5.05 10^6/uL (3.63-4.92); Red Cell Distribution Width 14.4 % (12-17); White Blood Count 10.4 10^3/uL (3.8-11.8)
[2022-08-29 07:07] LABS: Albumin 3.6 g/dL (3.2-5.2)
[2022-08-29 07:13] LABS: Albumin/Globulin Ratio 1.3 (1-3); Globulin 2.7 g/dL (2-4); Total Protein 6.3 g/dL (6.4-8.9)
[2022-08-29 07:15] LABS: ALT 17 U/L (7-52); Alkaline Phosphatase 81 U/L (35-149); Anion Gap 11 mmol/L (2-16); Blood Urea Nitrogen 20 mg/dL (6-24); CO2 Carbon Dioxide 19 mmol/L (22-32); Calcium 8.7 mg/dL (8.6-10.3); Chloride 104 mmol/L (101-111); Creatinine, Serum 0.92 mg/dL (0.51-0.95); Glucose 260 mg/dL (70-100); Sodium 134 mmol/L (135-145); eGFR CKD-EPI 65.7 (>60)
[2022-08-29 08:34] LABS: Magnesium 2.2 mg/dL (1.9-2.7); Potassium Redraw 3.8 mmol/L (3.5-5.0)
[2022-08-29] MEDS: PTO:DAPAGLIFLOZIN 10 MG TAB (NF) PO SCH (08:47)
[2022-08-29] MEDS: Heparin DRIP 25,000 UNITS BAG 25,000 UNITS/500 ML BAG IV SCH (08:56)
[2022-08-29] MEDS ORDERED: Insulin GLARGINE 100 un/ml 10 ml VIAL SUBCUT SCH (09:00)
[2022-08-29] MEDS ORDERED: Potassium Chlor 10 meq TAB PO ONE (11:00)
[2022-08-29] MEDS ORDERED: NS 0.9% 500 ml BAG 500 ML IV ONE (17:48)
[2022-08-30 04:51] LABS: ABS Basophils 0.1 10^3/uL (0.0-0.1); ABS Eosinophils 0.2 10^3/uL (0.0-0.5); ABS Lymphocytes 2.3 10^3/uL (1.0-4.8); ABS Monocytes 0.7 10^3/uL (0.0-0.9); ABS Neutrophils 4.8 10^3/uL (1.5-7.6); Eosinophil % 2.8 %; Hematocrit 39.3 % (35-45); Lymphocyte % 28.1 %; Mean Corpuscular Hemoglobin 28.5 pg (27-33); Mean Corpuscular Volume 86.5 fL (80-97); Mean Platelet Volume 7.3 fL (7.5-11.2); Platelet Count 246 10^3/uL (150-450); Red Blood Count 4.55 10^6/uL (3.63-4.92); Red Cell Distribution Width 14.7 % (12-17); White Blood Count 8.1 10^3/uL (3.8-11.8)
[2022-08-30 05:24] LABS: Blood Urea Nitrogen 24 mg/dL (6-24); CO2 Carbon Dioxide 21 mmol/L (22-32); Chloride 107 mmol/L (101-111); Creatinine, Serum 1.19 mg/dL (0.51-0.95); Glucose 212 mg/dL (70-100); Magnesium 2.1 mg/dL (1.9-2.7); Sodium 138 mmol/L (135-145); eGFR CKD-EPI 48.3 (>60)
[2022-08-30 05:26] LABS: Anion Gap 10 mmol/L (2-16)
[2022-08-30] MEDS: Insulin GLARGINE 100 un/ml 10 ml VIAL SUBCUT SCH (08:40)
[2022-08-31 04:32] LABS: ABS Basophils 0.1 10^3/uL (0.0-0.1); ABS Eosinophils 0.2 10^3/uL (0.0-0.5); ABS Lymphocytes 2.7 10^3/uL (1.0-4.8); ABS Monocytes 0.6 10^3/uL (0.0-0.9); ABS Neutrophils 3.8 10^3/uL (1.5-7.6); ABS Nucleated RBC 0.01 10^3/ul; Hematocrit 38.3 % (35-45); Hemoglobin 12.8 g/dL (11.5-14.3); Lymphocyte % 36.3 %; Mean Corpuscular Hemoglobin 28.2 pg (27-33); Mean Corpuscular Hgb Conc 33.5 g/dL (31-36); Mean Corpuscular Volume 84.2 fL (80-97); Mean Platelet Volume 7.2 fL (7.5-11.2); Nucleated Red Blood Cells % 0.2 /100 WBC (0.0-0.4); Platelet Count 251 10^3/uL (150-450); Red Blood Count 4.55 10^6/uL (3.63-4.92); Red Cell Distribution Width 14.6 % (12-17); White Blood Count 7.4 10^3/uL (3.8-11.8)
[2022-08-31 05:08] LABS: Calcium 8.9 mg/dL (8.6-10.3); Creatinine, Serum 1.08 mg/dL (0.51-0.95); Potassium 3.9 mmol/L (3.5-5.0); eGFR CKD-EPI 54.2 (>60)
[2022-08-31] MEDS ORDERED: Potassium Chlor 20 meq TAB.ER PO ONE (07:34)
[2022-08-31] MEDS: Insulin GLARGINE 100 un/ml 10 ml VIAL SUBCUT SCH (10:20)
[2022-08-31 11:13] VITALS: BP 133/85
== END 2022-08-31 14:15 | disposition home or self-care (01) | DRG 247 ==
LOC: ED 05:15 → ICU 06:11
PROVIDERS: ADMIT Internal Medicine; ATTEND Internal Medicine

== ENCOUNTER 2023-09-16 14:11 | Inpatient (IN) ==
[2023-09-16] MEDS: Lactated Ringers 1000 ml BAG 1,000 ML IV ONE ×2 (14:29→18:59)
[2023-09-16] MEDS ORDERED: Norepinephrine 4 MG/250mL D5W 4,000 MCG/250 ML BAG IV ONE (14:45)
[2023-09-16 14:51] LABS: Hematocrit 34.6 % (35-45); Hemoglobin 11.6 g/dL (11.5-14.3); Mean Corpuscular Hemoglobin 28.7 pg (27-33); Mean Corpuscular Hgb Conc 33.5 g/dL (31-36); Mean Corpuscular Volume 85.6 fL (80-97); Mean Platelet Volume 7.1 fL (7.5-11.2); Platelet Count 382 10^3/uL (150-450); Red Blood Count 4.04 10^6/uL (3.63-4.92); Red Cell Distribution Width 15.5 % (12-17); White Blood Count 13.8 10^3/uL (3.8-11.8)
[2023-09-16] MEDS: Piperacillin/Tazobac 3.375 BAG 3.375 GM/100 ML BAG IV ONE (14:53)
[2023-09-16] MEDS: Norepinephrine 4 MG/250mL D5W 4,000 MCG/250 ML BAG IV SCH ×2 (14:58→20:27)
[2023-09-16 15:02] LABS: Activated Partial Thrombo Time 42.5 seconds (26.0-38.0); INR 1.62 (0.83-1.13)
[2023-09-16 15:18] LABS: ABS Basophils 0.1 10^3/uL (0.0-0.1); ABS Eosinophils 0.2 10^3/uL (0.0-0.5); ABS Lymphocytes 3.1 10^3/uL (1.0-4.8); ABS Monocytes 0.7 10^3/uL (0.0-0.9); ABS Neutrophils 9.7 10^3/uL (1.5-7.6); ABS Nucleated RBC 0.01 10^3/ul; Eosinophil % 1.2 %; Lymphocyte % 22.7 %
[2023-09-16 15:19] LABS: RBC Morphology Normal (Normal)
[2023-09-16] MEDS: Vancomycin 1,750 MG in NS 0.9% 500 ml BAG 500 ML IVPB ONE (16:06)
[2023-09-16] MEDS ORDERED: Albuterol HFA INHALER 8 gm MDI INH PRN (16:25)
[2023-09-16 16:37] LABS: High Sensitivity Troponin 1 Hr 13 pg/mL (<15)
[2023-09-16 16:55] LABS: Albumin 3.2 g/dL (3.2-5.2); Albumin/Globulin Ratio 0.8 (1-3); C Reactive Protein 125.41 mg/L (<8.01); Calcium 8.7 mg/dL (8.6-10.3); Creatinine, Serum 2.56 mg/dL (0.51-0.95); Globulin 3.9 g/dL (2-4); Potassium 4.2 mmol/L (3.5-5.0); Total Bilirubin 0.3 mg/dL (0.2-1.0); Total Protein 7.1 g/dL (6.4-8.9); eGFR CKD-EPI 19.1 (>60)
[2023-09-16] MEDS: Azithromycin 500 mg/250 ml NS 500 MG/250 ML BAG IVPB SCH (19:50)
[2023-09-16] MEDS: cefTRIAXone 1 gm/50 mL D5W 1 GM/50 ML BAG IV SCH (21:06)
[2023-09-16] MEDS ORDERED: Dextrose 50% Syringe 50 ml 25 GM/50 ML SYRINGE IV PUSH PRN (22:39)
[2023-09-17 05:01] LABS: Hematocrit 33.2 % (35-45); Hemoglobin 10.9 g/dL (11.5-14.3); Mean Corpuscular Hemoglobin 28.3 pg (27-33); Mean Corpuscular Hgb Conc 32.9 g/dL (31-36); Mean Corpuscular Volume 86.1 fL (80-97); Platelet Count 300 10^3/uL (150-450); Red Blood Count 3.85 10^6/uL (3.63-4.92); Red Cell Distribution Width 15.7 % (12-17); White Blood Count 14.4 10^3/uL (3.8-11.8)
[2023-09-17 05:44] LABS: ALT 23 U/L (7-52); Albumin 2.5 g/dL (3.2-5.2); Albumin/Globulin Ratio 0.8 (1-3); Alkaline Phosphatase 80 U/L (35-149); Anion Gap 13 mmol/L (2-16); Blood Urea Nitrogen 66 mg/dL (6-24); CO2 Carbon Dioxide 16 mmol/L (22-32); Calcium 7.6 mg/dL (8.6-10.3); Chloride 105 mmol/L (101-111); Creatinine, Serum 1.84 mg/dL (0.51-0.95); Globulin 3.2 g/dL (2-4); Glucose 78 mg/dL (70-100); Sodium 134 mmol/L (135-145); Total Bilirubin 0.3 mg/dL (0.2-1.0); Total Protein 5.7 g/dL (6.4-8.9); eGFR CKD-EPI 28.4 (>60)
[2023-09-17 06:14] LABS: Potassium, Whole Blood 4.1 mmol/L (3.4-4.5)
[2023-09-17 07:22] LABS: ABS Basophils 0.1 10^3/uL (0.0-0.1); ABS Eosinophils 0.2 10^3/uL (0.0-0.5); ABS Lymphocytes 3.5 10^3/uL (1.0-4.8); ABS Monocytes 0.7 10^3/uL (0.0-0.9); ABS Neutrophils 9.9 10^3/uL (1.5-7.6); Eosinophil % 1.1 %; Lymphocyte % 24.4 %; RBC Morphology Normal (Normal)
[2023-09-17 09:09] LABS: Urine Appearance Clear; Urine Bilirubin Negative (Negative); Urine Blood Negative (Negative); Urine Color Colorless; Urine Glucose Negative (Negative); Urine Ketones Negative (Negative); Urine Nitrite Negative (Negative); Urine Protein Negative (Negative); Urine Specific Gravity 1.005 (1.002-1.030); Urine Urobilinogen Negative (Negative); Urine pH 5.5 (5.0-8.0)
[2023-09-17] MEDS: DAPAGLIFLOZIN 10 MG TAB (NF) PO SCH (10:10)
[2023-09-17] MEDS: Lactated Ringers 1000 ml BAG 500 ML IV ONE (10:23)
[2023-09-18 04:20] LABS: Hematocrit 32.7 % (35-45); Hemoglobin 10.9 g/dL (11.5-14.3); Mean Corpuscular Hemoglobin 28.7 pg (27-33); Mean Corpuscular Hgb Conc 33.5 g/dL (31-36); Mean Corpuscular Volume 85.8 fL (80-97); Mean Platelet Volume 7.2 fL (7.5-11.2); Platelet Count 300 10^3/uL (150-450); Red Blood Count 3.81 10^6/uL (3.63-4.92); Red Cell Distribution Width 15.4 % (12-17); White Blood Count 10.9 10^3/uL (3.8-11.8)
[2023-09-18 05:05] LABS: Anion Gap 10 mmol/L (2-16); Blood Urea Nitrogen 42 mg/dL (6-24); CO2 Carbon Dioxide 16 mmol/L (22-32); Calcium 8.2 mg/dL (8.6-10.3); Chloride 106 mmol/L (101-111); Glucose 97 mg/dL (70-100); Sodium 132 mmol/L (135-145); eGFR CKD-EPI 59.1 (>60)
[2023-09-18 05:20] LABS: ABS Basophils 0.1 10^3/uL (0.0-0.1); ABS Eosinophils 0.1 10^3/uL (0.0-0.5); ABS Lymphocytes 3.7 10^3/uL (1.0-4.8); ABS Monocytes 0.5 10^3/uL (0.0-0.9); ABS Neutrophils 6.5 10^3/uL (1.5-7.6); ABS Nucleated RBC 0.01 10^3/ul; Eosinophil % 1.3 %; Lymphocyte % 33.7 %; Nucleated Red Blood Cells % 0.1 %/100WBC (0.0-0.8)
[2023-09-18 05:21] LABS: RBC Morphology Normal (Normal)
[2023-09-18] MEDS: Magnesium Sulfate 2 gm BAG 2 GM/50 ML BAG IVPB ONE (09:56)
[2023-09-19 05:55] LABS: Hematocrit 35.4 % (35-45); Hemoglobin 11.6 g/dL (11.5-14.3); Mean Corpuscular Hemoglobin 28.2 pg (27-33); Mean Corpuscular Hgb Conc 32.7 g/dL (31-36); Mean Corpuscular Volume 86.4 fL (80-97); Mean Platelet Volume 7.1 fL (7.5-11.2); Platelet Count 335 10^3/uL (150-450); Red Cell Distribution Width 15.5 % (12-17); White Blood Count 12.1 10^3/uL (3.8-11.8)
[2023-09-19 07:04] LABS: Calcium 8.4 mg/dL (8.6-10.3); Creatinine, Serum 0.86 mg/dL (0.51-0.95); Magnesium 1.9 mg/dL (1.9-2.7); Potassium 4.3 mmol/L (3.5-5.0); eGFR CKD-EPI 70.8 (>60)
[2023-09-19 07:25] LABS: ABS Basophils 0.1 10^3/uL (0.0-0.1); ABS Eosinophils 0.2 10^3/uL (0.0-0.5); ABS Lymphocytes 4.9 10^3/uL (1.0-4.8); ABS Monocytes 0.6 10^3/uL (0.0-0.9); ABS Neutrophils 6.2 10^3/uL (1.5-7.6); ABS Nucleated RBC 0.02 10^3/ul; Eosinophil % 1.7 %; Lymphocyte % 40.9 %; Nucleated Red Blood Cells % 0.1 %/100WBC (0.0-0.8)
[2023-09-19 07:26] LABS: RBC Morphology Normal (Normal)
[2023-09-19 13:51] LABS: Hematocrit 33.1 % (35-45); Hemoglobin 10.8 g/dL (11.5-14.3); Mean Corpuscular Hgb Conc 32.8 g/dL (31-36); Mean Corpuscular Volume 85.6 fL (80-97); Mean Platelet Volume 6.9 fL (7.5-11.2); Platelet Count 319 10^3/uL (150-450); Red Blood Count 3.87 10^6/uL (3.63-4.92); Red Cell Distribution Width 15.2 % (12-17)
[2023-09-19 14:14] LABS: ABS Basophils 0.1 10^3/uL (0.0-0.1); ABS Eosinophils 0.1 10^3/uL (0.0-0.5); ABS Lymphocytes 3.7 10^3/uL (1.0-4.8); ABS Monocytes 0.5 10^3/uL (0.0-0.9); ABS Neutrophils 6.6 10^3/uL (1.5-7.6); ABS Nucleated RBC 0.01 10^3/ul; Lymphocyte % 33.8 %; Nucleated Red Blood Cells % 0.1 %/100WBC (0.0-0.8)
[2023-09-20] MEDS: Metoprolol Tartrate 5 mg VIAL 5 ml VIAL (1 mg/ml) IV ONE ×2 (04:40→11:39)
[2023-09-20 05:37] LABS: ABS Basophils 0.1 10^3/uL (0.0-0.1); ABS Eosinophils 0.1 10^3/uL (0.0-0.5); ABS Lymphocytes 3.6 10^3/uL (1.0-4.8); ABS Monocytes 0.7 10^3/uL (0.0-0.9); ABS Neutrophils 5.6 10^3/uL (1.5-7.6); ABS Nucleated RBC 0.01 10^3/ul; Eosinophil % 1.1 %; Hematocrit 32.8 % (35-45); Hemoglobin 10.9 g/dL (11.5-14.3); Mean Corpuscular Hemoglobin 28.4 pg (27-33); Mean Corpuscular Hgb Conc 33.4 g/dL (31-36); Mean Corpuscular Volume 85.1 fL (80-97); Mean Platelet Volume 6.9 fL (7.5-11.2); Nucleated Red Blood Cells % 0.1 %/100WBC (0.0-0.8); Platelet Count 294 10^3/uL (150-450); Red Blood Count 3.85 10^6/uL (3.63-4.92); Red Cell Distribution Width 15.1 % (12-17); White Blood Count 10.1 10^3/uL (3.8-11.8)
[2023-09-20 06:00] LABS: Calcium 8.2 mg/dL (8.6-10.3); Creatinine, Serum 0.75 mg/dL (0.51-0.95); Magnesium 1.5 mg/dL (1.9-2.7); Potassium 3.9 mmol/L (3.5-5.0); eGFR CKD-EPI 83.5 (>60)
[2023-09-20] MEDS: Magnesium Sulf 4 GM/100 ML IV 4,000 MG/100 ML BAG IVPB ONE (08:51)
[2023-09-20] MEDS: Digoxin IV 0.5 MG/2 ML AMP (0.25 MG/ML) IV SLOW PU ONE (11:40)
[2023-09-21 08:28] LABS: ABS Basophils 0.2 10^3/uL (0.0-0.1); ABS Eosinophils 0.2 10^3/uL (0.0-0.5); ABS Lymphocytes 3.5 10^3/uL (1.0-4.8); ABS Monocytes 0.7 10^3/uL (0.0-0.9); ABS Neutrophils 6.8 10^3/uL (1.5-7.6); ABS Nucleated RBC 0.01 10^3/ul; Eosinophil % 1.5 %; Hemoglobin 11.6 g/dL (11.5-14.3); Lymphocyte % 31.2 %; Mean Corpuscular Hemoglobin 27.8 pg (27-33); Mean Corpuscular Hgb Conc 32.3 g/dL (31-36); Mean Corpuscular Volume 85.9 fL (80-97); Mean Platelet Volume 7.1 fL (7.5-11.2); Nucleated Red Blood Cells % 0.1 %/100WBC (0.0-0.8); Platelet Count 346 10^3/uL (150-450); Red Blood Count 4.19 10^6/uL (3.63-4.92); Red Cell Distribution Width 15.3 % (12-17); White Blood Count 11.3 10^3/uL (3.8-11.8)
[2023-09-21 09:33] LABS: Calcium 8.5 mg/dL (8.6-10.3); Creatinine, Serum 0.73 mg/dL (0.51-0.95); Magnesium 1.9 mg/dL (1.9-2.7); Potassium 4.6 mmol/L (3.5-5.0); eGFR CKD-EPI 86.2 (>60)
[2023-09-23 09:57] VITALS: BP 102/66
[2023-09-23 10:11] LABS: Rapid COVID-19 Molecular Undetected (Undetected)
== END 2023-09-23 13:07 | DRG 871 ==
LOC: ED 14:11 → SUATTDRO 16:02 → EDHOLD 16:02 → ICU 16:56 → UNDODISIN 09-17 11:45 → MEDTELE 09-19 07:17
PROVIDERS: ADMIT Student in an Organized Health Care Education/Training Program; ATTEND Internal Medicine

== ENCOUNTER 2023-10-28 11:50 | Inpatient (IN) ==
[2023-10-28 13:57] LABS: ABS Basophils 0.1 10^3/uL (0.0-0.1); ABS Eosinophils 0.6 10^3/uL (0.0-0.5); ABS Lymphocytes 2.3 10^3/uL (1.0-4.8); ABS Monocytes 1.1 10^3/uL (0.0-0.9); ABS Nucleated RBC 0.01 10^3/ul; Eosinophil % 5.1 %; Hematocrit 37.4 % (35-45); Hemoglobin 11.8 g/dL (11.5-14.3); Lymphocyte % 18.9 %; Mean Corpuscular Hemoglobin 26.9 pg (27-33); Mean Corpuscular Hgb Conc 31.4 g/dL (31-36); Mean Corpuscular Volume 85.7 fL (80-97); Mean Platelet Volume 6.8 fL (7.5-11.2); Nucleated Red Blood Cells % 0.1 %/100WBC (0.0-0.8); Platelet Count 358 10^3/uL (150-450); Red Blood Count 4.37 10^6/uL (3.63-4.92); Red Cell Distribution Width 15.4 % (12-17); White Blood Count 12.1 10^3/uL (3.8-11.8)
[2023-10-28] MEDS: Lactated Ringers 1000 ml BAG 1,000 ML IV ONE (14:25)
[2023-10-28] MEDS: Acetaminophen IV 1 GM/100ML 1,000 MG/100 ML BAG IV ONE (14:25)
[2023-10-28 15:06] LABS: Albumin 3.9 g/dL (3.2-5.2); Albumin/Globulin Ratio 1.1 (1-3); C Reactive Protein 191.13 mg/L (<8.01); Calcium 9.2 mg/dL (8.6-10.3); Creatinine, Serum 0.98 mg/dL (0.51-0.95); Globulin 3.6 g/dL (2-4); Potassium 4.9 mmol/L (3.5-5.0); Total Bilirubin 0.5 mg/dL (0.2-1.0); Total Protein 7.5 g/dL (6.4-8.9); eGFR CKD-EPI 60.6 (>60)
[2023-10-28 15:32] LABS: Urine Appearance Cloudy
[2023-10-28 15:45] LABS: Urine Color Red; Urine Specific Gravity 1.017 (1.002-1.030)
[2023-10-28] MEDS: cefTRIAXone 1 gm/50 mL D5W 1 GM/50 ML BAG IV ONE (16:58)
[2023-10-28 17:14] LABS: High Sensitivity Troponin 1 Hr 19 pg/mL (<15)
[2023-10-28] MEDS: Furosemide 40 mg/4 ml IV VIAL IV ONE (17:28)
[2023-10-28] MEDS ORDERED: Dextrose 50% Syringe 50 ml 25 GM/50 ML SYRINGE IV PUSH PRN (18:15)
[2023-10-28] MEDS ORDERED: Zosyn per Pharmacy NOTE FOLLOW UP SCH (19:00)
[2023-10-28 20:02] LABS: Magnesium 1.5 mg/dL (1.9-2.7)
[2023-10-28] MEDS: Piperacillin/Tazobac 3.375 BAG 3.375 GM/100 ML BAG IV ONE (20:11)
[2023-10-28] MEDS: Enoxaparin 80 MG/0.8 ML SYR SUBCUT ONE (20:11)
[2023-10-28] MEDS: ZOSYN 3.375 GM Q8H per EXTENDED INFUSION IV SCH (23:43)
[2023-10-29] MEDS ORDERED: Vancomycin per Pharmacy 1 EA NOTE FOLLOW UP PRN (04:57)
[2023-10-29 05:32] LABS: ABS Basophils 0.1 10^3/uL (0.0-0.1); ABS Eosinophils 0.8 10^3/uL (0.0-0.5); ABS Lymphocytes 2.3 10^3/uL (1.0-4.8); ABS Neutrophils 5.3 10^3/uL (1.5-7.6); Eosinophil % 8.3 %; Hematocrit 31.8 % (35-45); Hemoglobin 10.6 g/dL (11.5-14.3); Lymphocyte % 24.6 %; Mean Corpuscular Hemoglobin 28.2 pg (27-33); Mean Corpuscular Hgb Conc 33.2 g/dL (31-36); Platelet Count 296 10^3/uL (150-450); Red Blood Count 3.74 10^6/uL (3.63-4.92); Red Cell Distribution Width 14.9 % (12-17); White Blood Count 9.5 10^3/uL (3.8-11.8)
[2023-10-29] MEDS: Vancomycin 1,500 MG in NS 0.9% 250 ml 250 ML IVPB ONE (05:45)
[2023-10-29] MEDS ORDERED: cefTRIAXone 1 gm/50 mL D5W 1 GM/50 ML BAG IV SCH (06:00)
[2023-10-29 06:15] LABS: Calcium 8.5 mg/dL (8.6-10.3); Creatinine, Serum 0.88 mg/dL (0.51-0.95); Magnesium 1.4 mg/dL (1.9-2.7); Potassium 4.4 mmol/L (3.5-5.0); eGFR CKD-EPI 68.9 (>60)
[2023-10-29] MEDS: Furosemide 20 mg/2 ml IV VIAL IV ONE (08:16)
[2023-10-29] MEDS: Magnesium Sulfate IV 1GM/100ML 1 GM/100 ML BAG IV ONE (08:17)
[2023-10-29] MEDS: Sulfur Hexaflouride MICROSPHR 25 MG VIAL IV ONE (09:21)
[2023-10-29] MEDS: Magnesium Sulfate 2 gm BAG 2 GM/50 ML BAG IVPB ONE (10:46)
[2023-10-29] MEDS: Enoxaparin 80 MG/0.8 ML SYR SUBCUT SCH (14:57)
[2023-10-29] MEDS: Iodixanol (CONTRAST) 320 MG/ML 100 ML SDV IV ONE (17:57)
[2023-10-29] MEDS: Vancomycin 750 MG in NS 0.9% 250 ML IVPB SCH (18:22)
[2023-10-30 07:17] LABS: ABS Basophils 0.1 10^3/uL (0.0-0.1); ABS Eosinophils 0.9 10^3/uL (0.0-0.5); ABS Lymphocytes 2.1 10^3/uL (1.0-4.8); ABS Monocytes 0.9 10^3/uL (0.0-0.9); ABS Neutrophils 4.7 10^3/uL (1.5-7.6); Eosinophil % 10.2 %; Hematocrit 31.2 % (35-45); Hemoglobin 10.3 g/dL (11.5-14.3); Lymphocyte % 24.6 %; Mean Corpuscular Hemoglobin 28.3 pg (27-33); Mean Corpuscular Hgb Conc 33.2 g/dL (31-36); Mean Corpuscular Volume 85.2 fL (80-97); Mean Platelet Volume 6.9 fL (7.5-11.2); Platelet Count 318 10^3/uL (150-450); Red Blood Count 3.66 10^6/uL (3.63-4.92); Red Cell Distribution Width 15.4 % (12-17); White Blood Count 8.6 10^3/uL (3.8-11.8)
[2023-10-30 07:20] LABS: Calcium 8.3 mg/dL (8.6-10.3); Creatinine, Serum 0.85 mg/dL (0.51-0.95); Potassium 4.5 mmol/L (3.5-5.0); eGFR CKD-EPI 71.8 (>60)
[2023-10-30] MEDS ORDERED: Naloxone 0.4 mg VIAL 0.4 mg/ml 1 ml VIAL ONE (12:17)
[2023-10-30] MEDS ORDERED: Flumazenil 0.5 mg/5 ml 0.1 MG/ML 5 ml VIAL ONE (12:17)
[2023-10-30] MEDS ORDERED: Midazolam 5 mg/5 ml VIAL 1 mg/ml 5 ml VIAL (5 mg) ONE (12:17)
[2023-10-30] MEDS ORDERED: fentaNYL 100 mcg/2 ml 50 MCG/ML VIAL ONE (12:17)
[2023-10-30 16:05] LABS: Body Fluid Total Nucleated 2434 /mcL
[2023-10-30 16:14] LABS: Body Fluid Appearance Cloudy; Body Fluid Color Red; Body Fluid Source Pleural Fluid
[2023-10-30 16:40] LABS: Albumin 3.3 g/dL (3.2-5.2)
[2023-10-30 16:56] LABS: Body Fluid Mono 4 %; Body Fluid Total Cells Counted 200
[2023-10-30] MEDS: Vancomycin Trough Check NOTE FOLLOW UP ONE (19:22)
[2023-10-30] MEDS: Enoxaparin 80 MG/0.8 ML SYR SUBCUT SCH (20:42)
[2023-10-30] MEDS: Iodixanol (CONTRAST) 320 MG/ML 100 ML SDV IV ONE (20:43)
[2023-10-31 06:31] LABS: ABS Basophils 0.1 10^3/uL (0.0-0.1); ABS Eosinophils 0.8 10^3/uL (0.0-0.5); ABS Lymphocytes 2.1 10^3/uL (1.0-4.8); ABS Monocytes 0.7 10^3/uL (0.0-0.9); ABS Nucleated RBC 0.01 10^3/ul; Eosinophil % 9.9 %; Hematocrit 31.9 % (35-45); Hemoglobin 10.3 g/dL (11.5-14.3); Lymphocyte % 28.1 %; Mean Corpuscular Hemoglobin 27.5 pg (27-33); Mean Corpuscular Hgb Conc 32.3 g/dL (31-36); Mean Platelet Volume 6.8 fL (7.5-11.2); Nucleated Red Blood Cells % 0.1 %/100WBC (0.0-0.8); Platelet Count 359 10^3/uL (150-450); Red Blood Count 3.75 10^6/uL (3.63-4.92); Red Cell Distribution Width 15.5 % (12-17); White Blood Count 7.7 10^3/uL (3.8-11.8)
[2023-10-31 06:52] LABS: Calcium 8.7 mg/dL (8.6-10.3); Creatinine, Serum 0.94 mg/dL (0.51-0.95); Potassium 4.9 mmol/L (3.5-5.0); Vancomycin Trough 15.5 mcg/mL; eGFR CKD-EPI 63.7 (>60)
[2023-10-31] MEDS ORDERED: fentaNYL 100 mcg/2 ml 50 MCG/ML VIAL ONE (13:46)
[2023-10-31] MEDS ORDERED: Midazolam 5 mg/5 ml VIAL 1 mg/ml 5 ml VIAL (5 mg) ONE (13:46)
[2023-10-31] MEDS ORDERED: Naloxone 0.4 mg VIAL 0.4 mg/ml 1 ml VIAL ONE (13:46)
[2023-10-31] MEDS ORDERED: Flumazenil 0.5 mg/5 ml 0.1 MG/ML 5 ml VIAL ONE (13:46)
[2023-11-01 07:59] LABS: Hematocrit 33.7 % (35-45); Hemoglobin 10.9 g/dL (11.5-14.3); Mean Corpuscular Hemoglobin 28.1 pg (27-33); Mean Corpuscular Hgb Conc 32.5 g/dL (31-36); Mean Corpuscular Volume 86.6 fL (80-97); Red Blood Count 3.89 10^6/uL (3.63-4.92); Red Cell Distribution Width 15.6 % (12-17); White Blood Count 7.6 10^3/uL (3.8-11.8)
[2023-11-01] MEDS ORDERED: Naloxone 0.4 mg VIAL 0.4 mg/ml 1 ml VIAL ONE (08:26)
[2023-11-01] MEDS ORDERED: fentaNYL 100 mcg/2 ml 50 MCG/ML VIAL ONE (08:26)
[2023-11-01] MEDS ORDERED: Flumazenil 0.5 mg/5 ml 0.1 MG/ML 5 ml VIAL ONE (08:26)
[2023-11-01] MEDS ORDERED: Midazolam 5 mg/5 ml VIAL 1 mg/ml 5 ml VIAL (5 mg) ONE (08:27)
[2023-11-01 08:42] LABS: ABS Basophils 0.1 10^3/uL (0.0-0.1); ABS Eosinophils 0.8 10^3/uL (0.0-0.5); ABS Lymphocytes 1.9 10^3/uL (1.0-4.8); ABS Monocytes 0.7 10^3/uL (0.0-0.9); ABS Neutrophils 4.2 10^3/uL (1.5-7.6); ABS Nucleated RBC 0.01 10^3/ul; Eosinophil % 10.5 %; Lymphocyte % 24.5 %; Mean Platelet Volume 6.9 fL (7.5-11.2); Nucleated Red Blood Cells % 0.1 %/100WBC (0.0-0.8); Platelet Count 360 10^3/uL (150-450)
[2023-11-01] MEDS ORDERED: Naloxone 0.4 mg VIAL 0.4 mg/ml 1 ml VIAL IV PUSH PRN (08:51)
[2023-11-01 08:53] LABS: Calcium 8.6 mg/dL (8.6-10.3); Creatinine, Serum 1.32 mg/dL (0.51-0.95); Potassium 5.2 mmol/L (3.5-5.0); eGFR CKD-EPI 42.4 (>60)
[2023-11-01] MEDS: fentaNYL 100 mcg/2 ml 50 MCG/ML VIAL IV SLOW PU ONE (10:58)
[2023-11-01] MEDS: Midazolam 10 mg/10 ml VIAL 1 mg/ml 10 ml VIAL (10 mg) IV SLOW PU ONE (10:59)
[2023-11-01] MEDS: NS 0.9% 1000 ml BAG 1,000 ML IV ONE (11:14)
[2023-11-02 07:20] LABS: ABS Basophils 0.1 10^3/uL (0.0-0.1); ABS Eosinophils 1.1 10^3/uL (0.0-0.5); ABS Lymphocytes 2.2 10^3/uL (1.0-4.8); ABS Monocytes 0.8 10^3/uL (0.0-0.9); ABS Neutrophils 4.4 10^3/uL (1.5-7.6); Eosinophil % 13.2 %; Hematocrit 32.4 % (35-45); Hemoglobin 10.6 g/dL (11.5-14.3); Lymphocyte % 25.7 %; Mean Corpuscular Hemoglobin 27.9 pg (27-33); Mean Corpuscular Hgb Conc 32.8 g/dL (31-36); Mean Corpuscular Volume 85.1 fL (80-97); Mean Platelet Volume 6.7 fL (7.5-11.2); Platelet Count 345 10^3/uL (150-450); Red Blood Count 3.81 10^6/uL (3.63-4.92); Red Cell Distribution Width 15.3 % (12-17); White Blood Count 8.7 10^3/uL (3.8-11.8)
[2023-11-02 09:30] LABS: Albumin 3.2 g/dL (3.2-5.2); Calcium 8.5 mg/dL (8.6-10.3); Creatinine, Serum 1.98 mg/dL (0.51-0.95); Globulin 3.3 g/dL (2-4); Potassium 5.1 mmol/L (3.5-5.0); Total Bilirubin 0.2 mg/dL (0.2-1.0); Total Protein 6.5 g/dL (6.4-8.9)
[2023-11-02] MEDS: Vancomycin Trough Check NOTE FOLLOW UP ONE (09:53)
[2023-11-02] MEDS: NS 0.9% 1000 ml BAG 1,000 ML IV SCH (18:32)
[2023-11-03 07:06] LABS: Creatinine, Serum 2.19 mg/dL (0.51-0.95); Vancomycin Random 19.5 mcg/mL; eGFR CKD-EPI 23.1 (>60)
[2023-11-03] MEDS: Vancomycin Random Level NOTE FOLLOW UP ONE (09:21)
[2023-11-03] MEDS: NS 0.9% 1000 ml BAG 1,000 ML IV SCH (10:03)
[2023-11-04] MEDS ORDERED: Vancomycin Trough Check NOTE FOLLOW UP ONE (05:30)
[2023-11-04 08:32] LABS: ABS Basophils 0.1 10^3/uL (0.0-0.1); ABS Lymphocytes 1.9 10^3/uL (1.0-4.8); ABS Monocytes 0.6 10^3/uL (0.0-0.9); ABS Neutrophils 4.1 10^3/uL (1.5-7.6); Eosinophil % 12.5 %; Hematocrit 29.4 % (35-45); Hemoglobin 9.7 g/dL (11.5-14.3); Mean Corpuscular Hemoglobin 27.9 pg (27-33); Mean Corpuscular Hgb Conc 33.2 g/dL (31-36); Mean Corpuscular Volume 84.1 fL (80-97); Mean Platelet Volume 6.6 fL (7.5-11.2); Nucleated Red Blood Cells % 0.1 %/100WBC (0.0-0.8); Platelet Count 283 10^3/uL (150-450); Red Blood Count 3.49 10^6/uL (3.63-4.92); Red Cell Distribution Width 15.6 % (12-17); White Blood Count 7.7 10^3/uL (3.8-11.8)
[2023-11-04 10:30] LABS: Calcium 8.1 mg/dL (8.6-10.3); Creatinine, Serum 2.32 mg/dL (0.51-0.95); Globulin 2.9 g/dL (2-4); Potassium 5.4 mmol/L (3.5-5.0); Total Bilirubin 0.2 mg/dL (0.2-1.0); Total Protein 5.9 g/dL (6.4-8.9); Vancomycin Random 14.9 mcg/mL; eGFR CKD-EPI 21.5 (>60)
[2023-11-04] MEDS: Vancomycin Random Level NOTE FOLLOW UP ONE (10:54)
[2023-11-04 12:04] LABS: Fluid Type: PLEURAL FLUID; Lactate Dehydrogenase, BF 269 U/L; Triglycerides (BF) 56 mg/dL
[2023-11-04 12:06] LABS: Albumin, BF 2.5 g/dL; Fluid Type, Albumin PLEURAL FLUID; Fluid Type, Amylase PLEURAL FLUID; Fluid Type, Protein, Total PLEURAL FLUID; Glucose, BF 122 mg/dL; Total Protein, BF 4.3 g/dL
[2023-11-04 15:55] LABS: Urine Appearance Clear; Urine Bilirubin Negative (Negative); Urine Blood Negative (Negative); Urine Color Colorless; Urine Glucose Negative (Negative); Urine Ketones Negative (Negative); Urine Nitrite Negative (Negative); Urine Protein Trace (Negative); Urine Urobilinogen Negative (Negative)
[2023-11-04] MEDS: SODIUM ZIRCONIUM CYCLOSILICATE 10 GM PACKET PO ONE (18:42)
[2023-11-05 06:50] LABS: ABS Eosinophils 0.9 10^3/uL (0.0-0.5); ABS Lymphocytes 2.2 10^3/uL (1.0-4.8); ABS Monocytes 0.8 10^3/uL (0.0-0.9); ABS Neutrophils 4.9 10^3/uL (1.5-7.6); Eosinophil % 9.7 %; Hematocrit 29.6 % (35-45); Hemoglobin 9.9 g/dL (11.5-14.3); Lymphocyte % 25.1 %; Mean Corpuscular Hemoglobin 28.1 pg (27-33); Mean Corpuscular Hgb Conc 33.6 g/dL (31-36); Mean Corpuscular Volume 83.7 fL (80-97); Mean Platelet Volume 6.5 fL (7.5-11.2); Platelet Count 281 10^3/uL (150-450); Red Blood Count 3.53 10^6/uL (3.63-4.92); Red Cell Distribution Width 15.5 % (12-17); White Blood Count 8.8 10^3/uL (3.8-11.8)
[2023-11-05 07:15] LABS: Calcium 8.3 mg/dL (8.6-10.3); Creatinine, Serum 2.47 mg/dL (0.51-0.95); Potassium 5.4 mmol/L (3.5-5.0)
[2023-11-05] MEDS: Lactated Ringers 1000 ml BAG 1,000 ML IV SCH (08:12)
[2023-11-05] MEDS ORDERED: Linezolid 600 MG IVPREMIX(*) 600 MG/300 ML BAG IVPB SCH (09:00)
[2023-11-05] MEDS: SODIUM ZIRCONIUM CYCLOSILICATE 10 GM PACKET PO ONE (10:01)
[2023-11-05] MEDS: NS 0.9% 1000 ml BAG 1,000 ML IV SCH (16:05)
[2023-11-05 18:27] LABS: Calcium 8.1 mg/dL (8.6-10.3); Creatinine, Serum 2.39 mg/dL (0.51-0.95); Potassium 5.2 mmol/L (3.5-5.0); eGFR CKD-EPI 20.8 (>60)
[2023-11-05] MEDS: Sodium Polystyrene ORAL.SUSP 15 GM/60 ML BTL PO ONE (20:39)
[2023-11-06 06:37] LABS: Creatinine, Serum 2.36 mg/dL (0.51-0.95); Potassium 4.7 mmol/L (3.5-5.0); eGFR CKD-EPI 21.1 (>60)
[2023-11-06] MEDS: DAPTOmycin SDV 500 MG in NS 0.9% 50 ML 50 ML IVPB SCH (09:30)
[2023-11-07 06:08] LABS: ABS Basophils 0.1 10^3/uL (0.0-0.1); ABS Eosinophils 0.7 10^3/uL (0.0-0.5); ABS Lymphocytes 2.4 10^3/uL (1.0-4.8); ABS Monocytes 0.6 10^3/uL (0.0-0.9); Eosinophil % 7.8 %; Hemoglobin 9.7 g/dL (11.5-14.3); Mean Corpuscular Hgb Conc 33.4 g/dL (31-36); Mean Corpuscular Volume 83.8 fL (80-97); Mean Platelet Volume 6.6 fL (7.5-11.2); Platelet Count 298 10^3/uL (150-450); Red Blood Count 3.46 10^6/uL (3.63-4.92); Red Cell Distribution Width 16.1 % (12-17); White Blood Count 8.7 10^3/uL (3.8-11.8)
[2023-11-07 06:23] LABS: Calcium 8.7 mg/dL (8.6-10.3); Creatinine, Serum 2.23 mg/dL (0.51-0.95); Magnesium 1.6 mg/dL (1.9-2.7); Potassium 4.6 mmol/L (3.5-5.0); eGFR CKD-EPI 22.6 (>60)
[2023-11-07] MEDS: Magnesium Sulfate 2 gm BAG 2 GM/50 ML BAG IVPB ONE (08:24)
[2023-11-08 05:56] LABS: ABS Basophils 0.1 10^3/uL (0.0-0.1); ABS Eosinophils 0.6 10^3/uL (0.0-0.5); ABS Lymphocytes 2.1 10^3/uL (1.0-4.8); ABS Monocytes 0.7 10^3/uL (0.0-0.9); ABS Neutrophils 4.9 10^3/uL (1.5-7.6); Eosinophil % 7.4 %; Hematocrit 27.8 % (35-45); Hemoglobin 9.3 g/dL (11.5-14.3); Lymphocyte % 25.1 %; Mean Corpuscular Hemoglobin 28.1 pg (27-33); Mean Corpuscular Hgb Conc 33.5 g/dL (31-36); Mean Platelet Volume 6.6 fL (7.5-11.2); Platelet Count 280 10^3/uL (150-450); Red Blood Count 3.31 10^6/uL (3.63-4.92); White Blood Count 8.4 10^3/uL (3.8-11.8)
[2023-11-08 06:50] LABS: Calcium 8.5 mg/dL (8.6-10.3); Creatinine, Serum 2.24 mg/dL (0.51-0.95); Potassium 4.6 mmol/L (3.5-5.0); eGFR CKD-EPI 22.5 (>60)
[2023-11-08] MEDS ORDERED: fentaNYL 100 mcg/2 ml 50 MCG/ML VIAL ONE (08:17)
[2023-11-08] MEDS ORDERED: Flumazenil 0.5 mg/5 ml 0.1 MG/ML 5 ml VIAL ONE (08:17)
[2023-11-08] MEDS ORDERED: Naloxone 0.4 mg VIAL 0.4 mg/ml 1 ml VIAL ONE (08:17)
[2023-11-08] MEDS ORDERED: Midazolam 5 mg/5 ml VIAL 1 mg/ml 5 ml VIAL (5 mg) ONE (08:19)
[2023-11-08] MEDS ORDERED: Naloxone 0.4 mg VIAL 0.4 mg/ml 1 ml VIAL IV PUSH PRN (09:26)
[2023-11-08] MEDS ORDERED: Flumazenil 0.5 mg/5 ml 0.1 MG/ML 5 ml VIAL IV PRN (09:26)
[2023-11-08] MEDS: Midazolam 10 mg/10 ml VIAL 1 mg/ml 10 ml VIAL (10 mg) IV SLOW PU ONE (10:39)
[2023-11-08] MEDS: fentaNYL 100 mcg/2 ml 50 MCG/ML VIAL IV SLOW PU ONE (10:41)
[2023-11-09 06:23] LABS: ABS Eosinophils 0.6 10^3/uL (0.0-0.5); ABS Lymphocytes 2.2 10^3/uL (1.0-4.8); ABS Monocytes 0.6 10^3/uL (0.0-0.9); ABS Neutrophils 4.2 10^3/uL (1.5-7.6); Eosinophil % 7.6 %; Hematocrit 28.8 % (35-45); Hemoglobin 9.6 g/dL (11.5-14.3); Lymphocyte % 28.8 %; Mean Corpuscular Hemoglobin 27.9 pg (27-33); Mean Corpuscular Hgb Conc 33.4 g/dL (31-36); Mean Corpuscular Volume 83.6 fL (80-97); Mean Platelet Volume 6.7 fL (7.5-11.2); Platelet Count 286 10^3/uL (150-450); Red Blood Count 3.45 10^6/uL (3.63-4.92); Red Cell Distribution Width 15.9 % (12-17); White Blood Count 7.7 10^3/uL (3.8-11.8)
[2023-11-09 06:52] LABS: Calcium 8.6 mg/dL (8.6-10.3); Creatinine, Serum 2.28 mg/dL (0.51-0.95); Magnesium 1.9 mg/dL (1.9-2.7); Potassium 4.7 mmol/L (3.5-5.0)
[2023-11-10 06:05] LABS: ABS Basophils 0.1 10^3/uL (0.0-0.1); ABS Eosinophils 0.5 10^3/uL (0.0-0.5); ABS Lymphocytes 2.2 10^3/uL (1.0-4.8); ABS Monocytes 0.6 10^3/uL (0.0-0.9); ABS Neutrophils 5.6 10^3/uL (1.5-7.6); Eosinophil % 5.6 %; Hematocrit 28.2 % (35-45); Hemoglobin 9.3 g/dL (11.5-14.3); Lymphocyte % 24.7 %; Mean Corpuscular Hemoglobin 27.4 pg (27-33); Mean Corpuscular Hgb Conc 32.9 g/dL (31-36); Mean Corpuscular Volume 83.4 fL (80-97); Mean Platelet Volume 6.6 fL (7.5-11.2); Platelet Count 290 10^3/uL (150-450); Red Blood Count 3.39 10^6/uL (3.63-4.92); White Blood Count 9.1 10^3/uL (3.8-11.8)
[2023-11-10 07:05] LABS: Calcium 8.5 mg/dL (8.6-10.3); Creatinine, Serum 2.32 mg/dL (0.51-0.95); Magnesium 1.8 mg/dL (1.9-2.7); Potassium 4.9 mmol/L (3.5-5.0); eGFR CKD-EPI 21.5 (>60)
[2023-11-10] MEDS: Magnesium Sulfate 2 gm BAG 2 GM/50 ML BAG IVPB ONE (09:12)
[2023-11-10] MEDS: Lactated Ringers 1000 ml BAG 1,000 ML IV SCH (09:12)
[2023-11-11 09:23] LABS: ABS Basophils 0.1 10^3/uL (0.0-0.1); ABS Eosinophils 0.5 10^3/uL (0.0-0.5); ABS Lymphocytes 2.4 10^3/uL (1.0-4.8); ABS Monocytes 0.5 10^3/uL (0.0-0.9); ABS Neutrophils 4.6 10^3/uL (1.5-7.6); ABS Nucleated RBC 0.01 10^3/ul; Eosinophil % 5.9 %; Hematocrit 29.5 % (35-45); Hemoglobin 9.8 g/dL (11.5-14.3); Lymphocyte % 29.9 %; Mean Corpuscular Hemoglobin 27.4 pg (27-33); Mean Corpuscular Hgb Conc 33.2 g/dL (31-36); Mean Corpuscular Volume 82.7 fL (80-97); Mean Platelet Volume 6.7 fL (7.5-11.2); Nucleated Red Blood Cells % 0.2 %/100WBC (0.0-0.8); Platelet Count 328 10^3/uL (150-450); Red Blood Count 3.56 10^6/uL (3.63-4.92); Red Cell Distribution Width 16.2 % (12-17); White Blood Count 8.1 10^3/uL (3.8-11.8)
[2023-11-11 09:46] LABS: Albumin 3.3 g/dL (3.2-5.2); C Reactive Protein 32.78 mg/L (<8.01); Calcium 8.6 mg/dL (8.6-10.3); Creatinine, Serum 2.42 mg/dL (0.51-0.95); Globulin 3.3 g/dL (2-4); Magnesium 2.2 mg/dL (1.9-2.7); Potassium 5.2 mmol/L (3.5-5.0); Total Bilirubin 0.3 mg/dL (0.2-1.0); Total Protein 6.6 g/dL (6.4-8.9); eGFR CKD-EPI 20.5 (>60)
[2023-11-12 05:38] LABS: ABS Basophils 0.1 10^3/uL (0.0-0.1); ABS Eosinophils 0.7 10^3/uL (0.0-0.5); ABS Lymphocytes 2.6 10^3/uL (1.0-4.8); ABS Monocytes 0.6 10^3/uL (0.0-0.9); ABS Neutrophils 3.8 10^3/uL (1.5-7.6); ABS Nucleated RBC 0.01 10^3/ul; Eosinophil % 8.7 %; Hematocrit 29.5 % (35-45); Hemoglobin 9.8 g/dL (11.5-14.3); Lymphocyte % 33.6 %; Mean Corpuscular Hemoglobin 27.4 pg (27-33); Mean Corpuscular Hgb Conc 33.3 g/dL (31-36); Mean Corpuscular Volume 82.4 fL (80-97); Mean Platelet Volume 6.4 fL (7.5-11.2); Nucleated Red Blood Cells % 0.1 %/100WBC (0.0-0.8); Platelet Count 322 10^3/uL (150-450); Red Blood Count 3.58 10^6/uL (3.63-4.92); Red Cell Distribution Width 16.5 % (12-17); White Blood Count 7.8 10^3/uL (3.8-11.8)
[2023-11-12 05:49] LABS: Urine Creatinine Concentration 20.04 mg/dL (20.00-320.00)
[2023-11-12 06:10] LABS: Calcium 9.1 mg/dL (8.6-10.3); Creatinine, Serum 2.23 mg/dL (0.51-0.95); Magnesium 2.2 mg/dL (1.9-2.7); Potassium 4.9 mmol/L (3.5-5.0); eGFR CKD-EPI 22.6 (>60)
[2023-11-12] MEDS ORDERED: Dextrose 50% Syringe 50 ml 25 GM/50 ML SYRINGE IV PUSH PRN (14:01)
[2023-11-13 05:45] LABS: Calcium 9.1 mg/dL (8.6-10.3); Creatinine, Serum 2.33 mg/dL (0.51-0.95); Potassium 5.2 mmol/L (3.5-5.0); eGFR CKD-EPI 21.4 (>60)
[2023-11-13 17:22] LABS: C Reactive Protein 17.57 mg/L (<8.01)
[2023-11-13 19:49] LABS: Hepatitis B Surface Ab Not Immune (Immune); Hepatitis C Antibody Negative (Negative)
[2023-11-14 06:11] LABS: ABS Basophils 0.1 10^3/uL (0.0-0.1); ABS Eosinophils 0.5 10^3/uL (0.0-0.5); ABS Lymphocytes 2.4 10^3/uL (1.0-4.8); ABS Monocytes 0.6 10^3/uL (0.0-0.9); ABS Neutrophils 3.5 10^3/uL (1.5-7.6); ABS Nucleated RBC 0.01 10^3/ul; Eosinophil % 7.2 %; Hematocrit 29.4 % (35-45); Hemoglobin 9.7 g/dL (11.5-14.3); Lymphocyte % 33.6 %; Mean Corpuscular Hemoglobin 27.3 pg (27-33); Mean Corpuscular Volume 82.8 fL (80-97); Mean Platelet Volume 6.6 fL (7.5-11.2); Nucleated Red Blood Cells % 0.1 %/100WBC (0.0-0.8); Platelet Count 322 10^3/uL (150-450); Red Blood Count 3.55 10^6/uL (3.63-4.92); White Blood Count 7.1 10^3/uL (3.8-11.8)
[2023-11-14 06:23] LABS: Calcium 8.9 mg/dL (8.6-10.3); Creatinine, Serum 2.28 mg/dL (0.51-0.95); Potassium 4.8 mmol/L (3.5-5.0)
[2023-11-14 06:49] LABS: Hepatitis B Surface Antigen Nonreactive (Nonreactive)
[2023-11-14 07:16] LABS: HIV 4th Generation Nonreactive (Nonreactive)
[2023-11-14 16:44] LABS: Urine Appearance Clear; Urine Bilirubin Negative (Negative); Urine Blood Negative (Negative); Urine Color Colorless; Urine Glucose Negative (Negative); Urine Ketones Negative (Negative); Urine Nitrite Negative (Negative); Urine Protein Negative (Negative); Urine Urobilinogen Negative (Negative)
[2023-11-14 17:38] VITALS: BP 118/77
[2023-11-15 17:28] LABS: Complement C3 115 mg/dL (75 - 175)
[2023-11-16 11:40] LABS: C-ANCA Negative (Negative); P-ANCA Negative (Negative)
[2023-11-18 12:33] LABS: Kappa Free Light Chain 20.1 mg/dL
[2023-11-18 13:17] LABS: Flag, M-protein Isotype Negative (Negative); Immunoglobulin A (IgA), S 242 mg/dL (61 - 356); Immunoglobulin G (IgG), S 1650 mg/dL (767 - 1590); Immunoglobulin M (IgM), S 60 mg/dL (37 - 286)
[2023-11-18 16:15] LABS: PLA2R, Immunofluorescence, S Negative (Negative)
== END 2023-11-14 19:45 | disposition home or self-care (01) | DRG 871 ==
LOC: EDHOLD 11:50 → ED 11:50 → SSU 20:00 → MED 10-30 20:12
PROVIDERS: ADMIT Student in an Organized Health Care Education/Training Program; ATTEND Internal Medicine